=== PATIENT | female | born 1985 | race Caucasian/White ===

== ENCOUNTER 2017-05-07 12:52 | Outpatient (CLI) | payer OTHER ==
[2017-05-07 13:28] VITALS: BP 127/69
--- NOTE | 2017-05-07 14:59 | Ultrasound Report ---
OB LIMITED INDICATION: MONIQUE. COMPARISON: None similar. TECHNIQUE: Transabdominal grayscale ultrasound with Doppler interrogation. Gestation: [place] Position: Cephalic Amniotic Fluid: WNL (7-24 cm) MONIQUE = 7 cm Heart Rate: 138 BPM CONCLUSION: Findings, as above.
--- NOTE | 2017-05-07 15:47 | Ultrasound Report ---
BIOPHYSICAL PROFILE: INDICATION: MONIQUE.. COMPARISON: None similar at this institution. TECHNIQUE: Transabdominal ultrasound with Doppler interrogation. 2 - breathing movements 2 - movements 2 - posture and tone 2 - Qualitative amniotic fluid volume 8 - TOTAL SCORE OF POSSIBLE 8 Heart Rate (bpm) 138 CONCLUSION: Findings, as above.
== END 2017-05-07 15:08 | disposition home or self-care (01) ==
LOC: TRG 12:52
PROVIDERS: ATTEND Obstetrics & Gynecology
DX: O48.0 Post-term pregnancy (principal); Z3A.41 41 weeks gestation of pregnancy
CPT/HCPCS: 59025; 76815; 76819

== ENCOUNTER 2017-05-09 08:59 | Inpatient (IN) | payer MEDICAID, OTHER ==
[2017-05-09] MEDS ORDERED: ePHEDrine SULFATE IV PRN (10:32)
[2017-05-09] MEDS ORDERED: MINERAL OIL PO PRN (10:32)
[2017-05-09] MEDS ORDERED: BRETHINE IVP PRN (10:32)
[2017-05-09] MEDS ORDERED: BRETHINE SUB-Q PRN (10:32)
[2017-05-09] MEDS ORDERED: XYLOCAINE 2% INFILTRATI ONE (10:32)
[2017-05-09] MEDS ORDERED: STADOL IV PRN (10:32)
--- NOTE | 2017-05-09 10:40 | History and Physical Report ---
History of Present Illness Date of examination: 05/09/17 Date of admission: 05/09/17 08:59 Chief complaint: Presents for a scheduled postdates induction of labor History of present illness: Late entry to care at [facility] at 24 weeks, course has been uncomplicated. Past History Past Medical History: no pertinent history Past Surgical History: no surgical history Family/Genetic History: none Social history: no significant social history, single - Obstetrical History Expected Date of Delivery: 04/28/17 Actual Gestation: 41 Week(s) 4 Day(s) : 3 Para: 1 Hx # Term Pregnancies: 1 Spontaneous Abortions: 1 Number of Living Children: 1 #1 Gender: Female year: 2[birth year] Birthweight: 3.175 kg Method of Delivery: Vaginal Gestational age at delivery: 40 Complications: none Medications and Allergies Allergies Allergy/AdvReac Type Severity Reaction Status Date / Time No Known Allergies Allergy Unverified 05/07/17 13:22 Home Medications Medication Instructions Recorded Confirmed Last Taken Type Vit Calc,Iron,Folic 1 each PO DAILY 05/07/17 05/07/17 05/07/17 09:00 History [ Vitamins] 1 Review of Systems All systems: negative - Vital Signs Vital signs: Vital Signs Pulse Pulse Ox 67 97 05/09/17 09:34 05/09/17 09:34 Temp Pulse Resp BP Pulse Ox 98.4 F 76 22 129/73 95 05/09/17 09:37 05/09/17 10:39 05/09/17 09:37 05/09/17 09:40 05/09/17 10:39 - Physical Exam Breasts: Positive: normal Cardiovascular: Regular rate Lungs: Positive: Clear to auscultation, Normal air movement Abdomen: Positive: normal appearance, soft, normal bowel sounds Genitourinary (Female): Positive: normal external genitalia, normal perenium Vagina: Positive: normal moisture Uterus: Positive: enlarged Anus/Rectum: Positive: normal perianal skin - Obstetrical FHR: category 1 Uterine Contraction Monitor Mode: Internal Cervical Dilatation: 4 (Small amount of clear fluid upon AROM at 1023) Cervical Effacement Percentage: 60 station: -2 Uterine Contraction Pattern: Irregular Uterine Tone Measurement Phase: Resting Uterine Contraction Intensity: Mild Results All other labs normal. Assessment and Plan A: IUP @ 41 4/7 Weeks Category I Tracing Maternal Obesity GBS Negative P: Admit to L&D per routine orders AROM IUPC Pitocin Induction
[2017-05-09] MEDS ORDERED: LACTATED RINGERS 1,000 ML IV SCH (11:00)
[2017-05-09] MEDS ORDERED: PITOCin/NS 20 UNIT/1000ML DRIP 20 UNITS/1,000 ML BAG IV SCH ×2 (11:00→20:00)
[2017-05-09] MEDS: PITOCin/NS 30 UNIT/500ML 30 UNITS/500 ML BAG IV SCH ×2 (11:41→12:46)
[2017-05-09 11:42] LABS: Hematocrit 39.3 % (30.3-42.9); Hemoglobin 12.7 gm/dl (10.1-14.3); Mean Corpuscular HGB Conc 32 % (30-34); Mean Corpuscular Hemoglobin 27 pg (28-32); Mean Corpuscular Volume 84 fl (79-97); Platelet Count 216 K/mm3 (140-440); Red Blood Count 4.69 M/mm3 (3.65-5.03); Red Cell Distribution Width 15.3 % (13.2-15.2)
[2017-05-09] MEDS ORDERED: BICITRA ONE (17:48)
[2017-05-09] MEDS ORDERED: REGLAN ONE (17:48)
[2017-05-09] MEDS ORDERED: PEPCID IV ONE (17:48)
[2017-05-09] MEDS ORDERED: ANCEF/STERILE WATER 2 GM/20 ML 2 GM/20 ML SYRINGE IV ONE ×2 (17:48→17:57)
[2017-05-09] MEDS ORDERED: MORPHINE ONE ×2 (18:03→18:07)
[2017-05-09] MEDS ORDERED: ANCEF/STERILE WATER 2 GM/20 ML IV ONE (18:15)
[2017-05-09] MEDS ORDERED: NEO SYNEPHRINE/NS Syringe(OR USE) IV ONE (18:31)
[2017-05-09] MEDS ORDERED: ZOFRAN ONE (18:49)
[2017-05-09] MEDS ORDERED: VERSED ONE (18:50)
--- NOTE | 2017-05-09 19:03 | Operative Report ---
Operative Report Operative Report: DATE: 05/09/2017 PREOPERATIVE DIAGNOSIS: A 31-year-old G3 to P1 at 41+4 weeks, category 2 tracing with deep recurrent variable decelerations, arrest of descent, suspected macrosomia, Maternal morbid obesity POSTOP DIAGNOSIS: As above NAME OF PROCEDURE: Primary low transverse section SURGEON: RAQUEL DIAZ MD SCRAP STRIPPER HAND: [] ANESTHESIA: Spinal EBL: 700 mL PATHOLOGY SPECIMEN: None URINE OUTPUT: 100 mL FINDINGS: Female in cephalic presentation, nuchal cord around neck and body 1, time of 18:20, weight 7 lbs. 5 oz. or 3295 g, Apgars 8 and 9, thick meconium-stained amniotic fluid, normal uterus tubes and ovaries bilaterally DESCRIPTION OF PROCEDURE: After informed consent, patient was taken to the operating room where she was prepped and draped in a sterile fashion. Pfannestial incision was performed 2 cm above the pubic symphysis. This was then carried down to the underlying rectus fascia which was scored in the midline. The fascial incision was extended laterally with the use of Stephens scissors, anterior leaf was then grasped with Linden's elevated dissected sharply and bluntly off the underlying rectus. In a similar fashion the inferior leaf was grasped elevated dissected sharply and bluntly off the underlying rectus. The rectus was in the midline and the peritoneal cavity was entered without difficulty. After good visualization of the bladder the peritoneal layer was extended up and down; bladder blade was placed in the patient's pelvic cavity, bladder flap was created without difficulty. A hysterotomy incision was then performed with thick meconium stained amniotic fluid noted. Infant in cephalic presentation was delivered without difficulty in the usual manner; cord was clamped cut and was handed over to waiting NICU staff. The placenta was then delivered intact, the uterus was then exteriorized cleared of all clots and debris. Her hysterotomy incision was then closed in a running locked fashion with 0 Vicryl on a CTX; using the same suture were able to imbricate the initial layer. The uterus was then returned to the patient's pelvic cavity; the peritoneal edges were grasped with hemostats and Fabiana's; irrigation was used to clear the gutters of all clots and debris. Tisseel hemostatic agent was applied copiously over the hysterotomy incision. The peritoneal layer was closed in a running fashion with 3-0 Vicryl; the rectus was reapproximated with a single [id number] stitch. The fascia was then closed in a running fashion with 0 Vicryl; the subcutaneous layer was reapproximated with a single [id number] stitch. The skin was then closed in a subcuticular manner with 4-0 Monocryl. She tolerated the procedure well lap and instrument counts were correct 2, she did receive 2 grams of Ancef prior to the procedure. She is transferred to PACU in stable condition.
[2017-05-09] MEDS ORDERED: TYLENOL PO PRN (19:05)
[2017-05-09] MEDS ORDERED: TUCKS PAD TP PRN (19:05)
[2017-05-09] MEDS ORDERED: REGLAN IV PRN (19:05)
[2017-05-09] MEDS ORDERED: MYLICON PO PRN (19:05)
[2017-05-09] MEDS ORDERED: BENADRYL IV PRN (19:05)
[2017-05-09] MEDS ORDERED: ZOFRAN IV PRN ×2 (19:05)
[2017-05-09] MEDS ORDERED: MILK OF MAGNESIA PO PRN (19:05)
[2017-05-09] MEDS ORDERED: TORADOL IV PRN (19:05)
[2017-05-09] MEDS ORDERED: LANSINOH TP PRN (19:05)
[2017-05-09] MEDS ORDERED: NARCAN 0.4 MG/1 ML IV PRN ×2 (19:05)
[2017-05-09] MEDS ORDERED: SENOKOT PO PRN (19:05)
[2017-05-09] MEDS ORDERED: PHENERGAN PR PRN (19:05)
[2017-05-09] MEDS ORDERED: ANUCORT-HC PR PRN (19:05)
--- NOTE | 2017-05-09 19:45 | Anesthesia Consultation ---
Anesthesia Consult and Med Hx Date of service: 05/09/17 - Airway Anesthetic Teeth Evaluation: Good ROM Head & Neck: Adequate Mental/Hyoid Distance: Adequate Mallampati Class: Class II Intubation Access Assessment: Probably Good - Pulmonary Exam CTA: Yes - Cardiac Exam Cardiac Exam: RRR - Pre-Operative Health Status ASA Pre-Surgery Classification: ASA3, Emergency Proposed Anesthetic Plan: Spinal - Pulmonary Hx Asthma: No COPD: No Hx Pneumonia: No - Cardiovascular System Hx Hypertension: No - Central Nervous System Hx Seizures: No Hx Psychiatric Problems: No - Endocrine Hx Renal Disease: No Hx End Stage Renal Disease: No Hx Hypothyroidism: No Hx Hyperthyroidism: No - Hematic Hx Anemia: No Hx Sickle Cell Disease: No - Other Systems Hx Alcohol Use: No Hx Obesity: Yes (morbid)
--- NOTE | 2017-05-09 19:46 | Post Anesthesia Evaluation ---
- Post Anesthesia Evaluation Patient Participated: Yes Airway Patent: Yes Stable Respiratory Function: Yes Temp > 96.8F: Yes Pain Manageable: Yes Adequeate Hydration: Yes Anesthesia Complications: No
--- NOTE | 2017-05-09 19:46 | Anesthesia Day of Surgery ---
Anesthesia Day of Surgery - Day of Surgery Patient Examined: Yes Patient H&P Reviewed: Yes Patient is NPO: No
[2017-05-09] MEDS ORDERED: MORPHINE PCA 30MG/30ML IV SCH (20:00)
[2017-05-09] MEDS ORDERED: SODIUM CHLORIDE FLUSH SYRINGE 10 ML IV NR (20:00)
[2017-05-09] MEDS ORDERED: NACL 0.9% 1000 ML 1,000 ML IV SCH (20:00)
[2017-05-09] MEDS: SENOKOT S PO SCH (22:12)
[2017-05-09] MEDS: D5LR 1,000 ML IV SCH (22:16)
[2017-05-10] MEDS: D5LR 1,000 ML IV SCH (06:33)
[2017-05-10 08:41] LABS: Hematocrit 32.1 % (30.3-42.9); Hemoglobin 10.8 gm/dl (10.1-14.3)
[2017-05-10] MEDS: PERCOCET 5/325 PO PRN ×2 (10:07→18:40)
--- NOTE | 2017-05-10 10:22 | Progress Note ---
Assessment and Plan A: POD 1 - stable P: Continue routine postop orders Consulted Dr. Diaz about POC. Recommended discontinuing SLIVER CUTTER pump and starting PO pain meds Change positions slowly and ambulate with assistance Subjective - Subjective Date of service: 05/10/17 Principal diagnosis: Primary Low Transverse Patient reports: appetite normal, dizzy ambulation, no voiding normally, no flatus [place]: doing well, nursing well, bottle feeding Objective - Vital Signs Latest vital signs: Vital Signs Temp Pulse Resp BP BP Pulse Ox 05/10/17 10:07 20 05/10/17 08:01 99.5 F 81 126/55 20 L 05/10/17 07:55 20 05/10/17 06:30 18 05/10/17 05:30 18 05/10/17 04:30 98.7 F 86 18 119/66 95 05/10/17 03:30 18 05/10/17 01:00 18 05/10/17 00:40 98.0 F 97 H 20 133/77 97 05/10/17 00:15 18 05/09/17 22:10 18 05/09/17 21:30 98.4 F 85 18 150/82 97 05/09/17 21:20 18 05/09/17 20:20 81 20 138/62 96 05/09/17 20:05 83 19 128/63 96 05/09/17 19:50 77 16 105/34 96 05/09/17 19:35 85 17 98/45 97 05/09/17 19:20 91 H 18 113/75 97 05/09/17 19:15 93 H 12 117/55 97 05/09/17 19:09 97.9 F 93 H 18 115/29 97 05/09/17 17:37 85 144/77 05/09/17 17:07 85 141/103 94 05/09/17 17:06 85 96 05/09/17 17:01 89 95 05/09/17 16:55 89 97 05/09/17 16:50 94 H 94 05/09/17 16:49 77 94 05/09/17 16:45 84 97 05/09/17 16:40 84 96 05/09/17 16:37 84 144/72 05/09/17 16:34 80 20 95 05/09/17 16:29 88 96 05/09/17 16:24 77 97 17 16:19 84 98 17 16:17 66 93 05/09/17 16:14 84 97 17 16:09 86 97 17 16:07 78 145/70 94 17 16:04 83 97 17 15:59 72 92 17 15:54 70 96 17 15:49 83 96 17 15:44 70 97 17 15:39 75 94 17 15:37 66 147/72 93 17 15:34 70 97 17 15:29 74 96 05/09/17 15:24 72 97 17 15:19 78 97 05/09/17 15:14 70 97 17 15:09 80 97 05/09/17 15:07 71 136/69 17 15:04 73 97 05/09/17 14:59 69 97 05/09/17 14:54 77 96 05/09/17 14:49 74 96 05/09/17 14:44 76 97 05/09/17 14:39 76 97 05/09/17 14:37 78 138/76 05/09/17 14:36 68 94 05/09/17 14:34 79 96 05/09/17 14:29 76 95 05/09/17 14:24 79 96 05/09/17 14:19 80 96 05/09/17 14:14 75 97 05/09/17 14:09 79 96 05/09/17 14:07 82 122/77 05/09/17 14:04 68 95 05/09/17 14:03 69 94 05/09/17 13:59 79 95 17 13:54 73 97 17 13:49 87 96 17 13:48 75 93 17 13:44 76 95 17 13:39 72 97 17 13:37 75 122/60 92 17 13:34 71 96 17 13:29 82 95 17 13:24 77 95 17 13:19 69 96 17 13:14 75 97 05/09/17 13:09 76 97 05/09/17 13:06 81 125/71 05/09/17 13:04 79 97 05/09/17 12:59 74 97 05/09/17 12:54 70 97 05/09/17 12:51 78 124/72 93 05/09/17 12:49 72 96 05/09/17 12:44 76 96 05/09/17 12:39 77 96 05/09/17 12:34 67 96 05/09/17 12:33 67 22 139/87 138/87 96 05/09/17 12:29 73 97 05/09/17 12:24 73 95 05/09/17 12:19 69 97 05/09/17 12:14 68 97 05/09/17 12:09 85 96 05/09/17 12:04 79 96 05/09/17 11:59 72 97 05/09/17 11:54 74 96 05/09/17 11:49 74 96 05/09/17 11:45 71 117/62 94 05/09/17 11:44 71 22 117/62 97 05/09/17 11:39 74 97 05/09/17 11:34 77 97 05/09/17 11:29 66 97 05/09/17 11:24 72 96 05/09/17 11:19 73 96 05/09/17 11:14 69 96 05/09/17 11:09 72 97 05/09/17 11:04 68 96 05/09/17 10:59 71 97 05/09/17 10:54 73 97 05/09/17 10:49 67 96 05/09/17 10:44 75 96 05/09/17 10:39 76 95 05/09/17 10:34 77 96 05/09/17 10:29 75 96 05/09/17 10:24 79 96 Intake and Output 05/09/17 05/10/17 05/10/17 23:59 07:59 15:59 Intake Total 2500 1420 120 Output Total 500 1100 300 Balance 2000 320 -180 Intake: IV 2400 1000 D5lr 1,000 ml @ 125 mls/ 1000 hr IV DIRECT AGNIESZKA Rx#: [id number] Oral 100 420 120 Output: Urine 500 1100 300 Indwelling Catheter 400 Uretheral ([place]) 300 700 Void 300 Other: Total, Intake Amount 100 300 120 Total, Output Amount 400 300 Estimated Blood Loss 700 - Exam Cardiovascular: Present: Regular rate, Normal S1, Normal S2, No murmurs Lungs: Present: Clear to auscultation, Normal air movement Abdomen: Present: normal appearance Vulva: both: normal Uterus: Present: normal, firm, fundal height above umbilicus Extremities: Present: normal Deep Tendon Reflex Grade: Normal +2 Incision: Present: normal, dry, dressed - Labs Labs: Abnormal lab results 05/09/17 Range/Units 10:55 MCH 27 L (28-32) pg RDW 15.3 H (13.2-15.2) %
[2017-05-10] MEDS ORDERED: BOOSTRIX IM ONE (19:07)
[2017-05-10] MEDS ORDERED: M-M-R II VACCINE SUB-Q ONE (19:07)
[2017-05-10] MEDS: SENOKOT S PO SCH (21:59)
[2017-05-11] MEDS: PERCOCET 5/325 PO PRN ×2 (01:52→17:10)
[2017-05-11] MEDS ORDERED: BOOSTRIX IM ONE (06:00)
--- NOTE | 2017-05-11 09:57 | Progress Note ---
Assessment and Plan A: POD # 2 - stable P: Discharge home in am Subjective - Subjective Date of service: 05/11/17 Principal diagnosis: Primary Low Transverse Patient reports: appetite normal : doing well Objective - Vital Signs Latest vital signs: Vital Signs Temp Pulse Resp BP BP Pulse Ox 05/11/17 08:25 98.6 F 81 18 121/58 05/11/17 01:40 98.6 F 87 18 130/64 97 05/10/17 18:40 20 05/10/17 16:32 98.8 F 78 18 107/50 107/50 97 05/10/17 12:00 98.1 F 79 20 125/54 125/54 95 05/10/17 10:07 20 05/10/17 10:00 20 Intake and Output 05/10/17 05/11/17 05/11/17 22:59 06:59 14:59 Intake Total 240 360 120 Balance 240 360 120 Intake: Oral 240 120 Intake, Free Water 360 Other: Total, Intake Amount 240 120 # Voids Void 1 1 1 - Exam Breasts: Present: deferred, mass Lungs: Present: Clear to auscultation Abdomen: Present: soft Vulva: both: normal Uterus: Present: fundal height below umbilicus Extremities: Present: normal Deep Tendon Reflex Grade: Normal +2 Incision: Present: intact, dressed
--- NOTE | 2017-05-11 09:58 | Discharge Summary ---
Providers - Providers Date of Admission: 05/09/17 08:59 Date of discharge: 05/12/17 Attending physician: HARINDER NEIL MD Primary care physician: HARINDER NEIL MD Hospitalization Reason for admission: active labor Delivery: Procedure: section Episiotomy: none Laceration: none Incision: intact complications: none Discharge diagnosis: IUP at term delivered [place] baby: female Condition at discharge: Good Disposition: DC-01 TO HOME OR SELFCARE Plan - Discharge Medications Prescriptions: Ibuprofen [Motrin 600 MG tab] 600 mg PO Q8H PRN #30 tablet PRN Reason: Pain Multivitamin with Iron [Multivitamins with Iron] 1 each PO DAILY #30 tablet oxyCODONE /ACETAMINOPHEN [Percocet 5/325] 1 tab PO Q6HR PRN #30 tablet PRN Reason: Pain - Provider Discharge Summary Activity: routine, no sex for 6 weeks, no strenuous exercise Diet: routine Instructions: routine Additional instructions: [] Smoking cessation referral if applicable(refer to patient education folder for contact #) [] Refer to [facility] Booklet Call your doctor immediately for: * Fever > 100.5 * Heavy vaginal bleeding ( >1 pad per hour) * Severe persistent headache * Shortness of breath * Reddened, hot, painful area to leg or breast * Drainage or odor from incision. * Keep incision clean and dry at all times and follow doctor's instructions regarding bathing/showering - Follow up plan Follow up: HARINDER NEIL MD [Primary Care Provider] - 14 Days
[2017-05-11] MEDS: PRENATAL VITAMIN PO SCH (17:10)
[2017-05-11] MEDS: MOTRIN PO PRN (17:10)
[2017-05-11] MEDS: SENOKOT S PO SCH ×2 (17:10→22:29)
[2017-05-11] MEDS: FEOSOL PO SCH (17:10)
[2017-05-12] MEDS: PERCOCET 5/325 PO PRN (04:55)
[2017-05-12] MEDS: MOTRIN PO PRN (04:56)
[2017-05-12] MEDS: PRENATAL VITAMIN PO SCH (10:14)
[2017-05-12] MEDS: FEOSOL PO SCH (10:14)
[2017-05-12] MEDS: SENOKOT S PO SCH (10:14)
[2017-05-12] MEDS ORDERED: Fluarix Quad 2017-2018(36 MOS+ IM ONE (13:00)
[2017-05-12 16:06] VITALS: BP 131/57
== END 2017-05-12 15:15 | disposition home or self-care (01) | DRG 765 ==
LOC: LD 08:59 → APU 18:40 → OB 21:03
PROVIDERS: ADMIT Obstetrics & Gynecology; ATTEND Obstetrics & Gynecology
PROC: 10D00Z1 Extraction of Products of Conception, Low, Open Approach (ICD-10-PCS; principal; 2017-05-09)
DX: O48.0 Post-term pregnancy (principal); Z68.41 Body mass index [BMI] 40.0-44.9, adult; O99.214 Obesity complicating childbirth; O76 Abnormality in fetal heart rate and rhythm complicating labor and delivery; O69.81X0 Labor and delivery complicated by cord around neck, without compression, not applicable or unspecified; O77.0 Labor and delivery complicated by meconium in amniotic fluid; O75.0 Maternal distress during labor and delivery; E66.01 Morbid (severe) obesity due to excess calories; Z3A.41 41 weeks gestation of pregnancy; Z37.0 Single live birth; Z71.3 Dietary counseling and surveillance
CPT/HCPCS: 36415; 85014; 85018; 85027; 86592; 86850; 86900; 86901; 90471; 90686; 90715; 99211; C9250; G0463; J0595; J0690; J2250; J2270; J2370; J2405; J2590; J2765; J7120; J7121

== ENCOUNTER 2019-09-26 22:02 | Inpatient (IN) | payer OTHER, SELFPAY ==
[2019-09-26 22:42] LABS: HCG Qualitative,Urine Negative (Negative)
--- NOTE | 2019-09-26 22:57 | Emergency Department Report ---
Minor Respiratory - HPI Chief Complaint: Upper Respiratory Infection Stated Complaint: HEADACE/FEVER/SORE THROAT ED Review of Systems ROS: Stated complaint: HEADACE/FEVER/SORE THROAT Other details as noted in HPI ED Past Medical Hx - Past Medical History Previous Medical History?: No Hx Hypertension: No Hx Congestive Heart Failure: No Hx Diabetes: No Hx Deep Vein Thrombosis: No Hx Renal Disease: No Hx Sickle Cell Disease: No Hx Seizures: No Hx Asthma: No Hx COPD: No Hx HIV: No - Surgical History Past Surgical History?: No - Social History Smoking Status: Never Smoker Substance Use Type: None - Medications Home Medications: Home Medications Medication Instructions Recorded Confirmed Last Taken Type Vit Calc,Iron,Folic 1 each PO DAILY 05/07/17 05/09/17 05/09/17 09:00 History [ Vitamins] Ibuprofen [Motrin 600 MG tab] 600 mg PO Q8H PRN #30 tablet 05/09/17 Unknown Rx Multivitamin with Iron 1 each PO DAILY #30 tablet 05/09/17 Unknown Rx [Multivitamins with Iron] oxyCODONE /ACETAMINOPHEN [Percocet 1 tab PO Q6HR PRN #30 tablet 05/09/17 Unknown Rx 5/325] Minor Respiratory Exam - Exam General: Vital signs noted. No distress. Alert and acting appropriately. Neurologic: Alert and oriented, no deficits. Musculoskeletal: Unremarkable. ED Course Vital Signs 09/26/19 22:08 Temperature 99.9 F H Pulse Rate 102 H Respiratory 18 Rate Blood Pressure 156/75 O2 Sat by Pulse 94 Oximetry Critical care attestation.: If time is entered above; I have spent that time in minutes in the direct care of this critically ill patient, excluding procedure time. ED Disposition Condition: Stable
[2019-09-26] MEDS ORDERED: IBUPROFEN 600 MG TAB PO ONE (23:10)
[2019-09-26 23:17] LABS: Bilirubin,Urine NEG (Negative); Blood,Urine NEG (Negative); Color,Urine Yellow (Yellow); Mucus,Urine FEW /HPF
--- NOTE | 2019-09-26 23:25 | XRay Report ---
CHEST 2 VIEWS INDICATION / CLINICAL INFORMATION: mid back pain. COMPARISON: None available. FINDINGS: SUPPORT DEVICES: None. HEART / MEDIASTINUM: No significant abnormality. LUNGS / PLEURA: There are patchy airspace opacities in the right mid lower lung zone and the left [place] .No pneumothorax. ADDITIONAL FINDINGS: No significant additional findings. IMPRESSION: 1. There are patchy airspace opacities bilaterally. This could represent atelectasis or pneumonitis. Signer Name: Jaylan Duvall MD Signed: 09/26/2019 11:21 PM Workstation Name: [id number]
--- NOTE | 2019-09-26 23:48 | Emergency Department Report ---
ED General Adult HPI - General Chief complaint: Upper Respiratory Infection Stated complaint: HEADACE/FEVER/SORE THROAT Source: patient Mode of arrival: Ambulatory Limitations: Language Barrier - History of Present Illness Initial comments: 34-year-old female presents to the emergency room complaining of mid to lower back pain x2 days. Patient states that she does have some burning with urination and concern for . Patient stated that she had a fever sore t hroat and headache yesterday but resolved today. Patient does admit to having seasonal allergies. Patient denies any back injury. Patient reports she does not take any medications on a daily basis she took ibuprofen yesterday but no pain medicine today. Patient denies any known drug allergies. Onset/Timin -: days(s) Location: back Radiation: non-radiation Quality: aching Consistency: intermittent Improves with: none Worsens with: none Associated Symptoms: other (Dysuria) Treatments Prior to Arrival: none - Related Data Home Medications Medication Instructions Recorded Confirmed Last Taken Vit Calc,Iron,Folic 1 each PO DAILY 05/07/17 05/09/17 05/09/17 09:00 [ Vitamins] Previous Rx's Medication Instructions Recorded Last Taken Type Ibuprofen [Motrin 600 MG tab] 600 mg PO Q8H PRN #30 tablet 05/09/17 Unknown Rx Multivitamin with Iron 1 each PO DAILY #30 tablet 05/09/17 Unknown Rx [Multivitamins with Iron] oxyCODONE /ACETAMINOPHEN [Percocet 1 tab PO Q6HR PRN #30 tablet 05/09/17 Unknown Rx 5/325] Allergies Allergy/AdvReac Type Severity Reaction Status Date / Time No Known Allergies Allergy Verified 05/09/17 10:36 ED Review of Systems ROS: Stated complaint: HEADACE/FEVER/SORE THROAT Other details as noted in HPI Comment: All other systems reviewed and negative ED Past Medical Hx - Past Medical History Hx Hypertension: No Hx Congestive Heart Failure: No Hx Diabetes: No Hx Deep Vein Thrombosis: No Hx Renal Disease: No Hx Sickle Cell Disease: No Hx Seizures: No Hx Asthma: No Hx COPD: No Hx HIV: No - Surgical History Past Surgical History?: No - Social History Smoking Status: Never Smoker Substance Use Type: None - Medications Home Medications: Home Medications Medication Instructions Recorded Confirmed Last Taken Type Vit Calc,Iron,Folic 1 each PO DAILY 05/07/17 05/09/1705/09/17 09:00 History [ Vitamins] Ibuprofen [Motrin 600 MG tab] 600 mg PO Q8H PRN #30 tablet 05/09/17 Unknown Rx Multivitamin with Iron 1 each PO DAILY #30 tablet 05/09/17 Unknown Rx [Multivitamins with Iron] oxyCODONE /ACETAMINOPHEN [Percocet 1 tab PO Q6HR PRN #30 tablet 05/09/17 Unknown Rx 5/325] ED Physical Exam - General Limitations: Language Barrier General appearance: alert, in no apparent distress - Head Head exam: Present: atraumatic, normocephalic - Eye Eye exam: Present: normal appearance - ENT ENT exam: Present: mucous membranes moist - Neck Neck exam: Present: normal inspection, full ROM - Respiratory Respiratory exam: Present: normal lung sounds bilaterally. Absent: respiratory distress - Cardiovascular Cardiovascular Exam: Present: regular rate, normal rhythm. Absent: systolic murmur, diastolic murmur, rubs, gallop - GI/Abdominal GI/Abdominal exam: Present: soft. Absent: distended, tenderness, guarding - Extremities Exam Extremities exam: Present: normal inspection, full ROM - Back Exam Back exam: Present: full ROM, tenderness. Absent: paraspinal tenderness, verteb ral tenderness - Neurological Exam Neurological exam: Present: alert, oriented X3, normal gait - Psychiatric Psychiatric exam: Present: normal affect, normal mood - Skin Skin exam: Present: warm, dry, intact, normal color. Absent: rash ED Course Vital Signs 09/26/19 09/26/19 09/26/19 22:08 23:40 23:41 Temperature 99.9 F H 99.8 F H Pulse Rate 102 H 95 H Respiratory 18 Rate Blood Pressure 156/75 150/65 O2 Sat by Pulse 94 94 Oximetry 09/27/19 09/27/19 09/27/19 01:58 02:01 02:15 Temperature 100.8 F H Pulse Rate 100 H 94 H Respiratory 24 21 Rate Blood Pressure 147/81 O2 Sat by Pulse 95 96 95 Oximetry 09/27/19 09/27/19 02:31 02:32 Temperature Pulse Rate Respiratory 24 Rate Blood Pressure 147/81 O2 Sat by Pulse 96 95 Oximetry ED Medical Decision Making - Lab Data Result diagrams: 09/27/19 00:22 09/27/19 00:22 Laboratory Tests 09/26/19 09/26/19 09/27/19 22:30 22:30 00:22 WBC 6.1 RBC 4.83 Hgb 13.7 Hct 40.1 MCV 83 MCH 28 MCHC 34 RDW 13.5 Plt Count 243 Lymph % (Auto) 28.3 [place] % (Auto) 10.1 H Eos % (Auto) 0.5 Baso % (Auto) 0.5 Lymph # 1.7 [place] # 0.6 Eos # 0.0 Baso # 0.0 Seg Neutrophils % 60.6 Seg Neutrophils # 3.7 D-Dimer Sodium Potassium Chloride Carbon Dioxide Anion Gap BUN Creatinine Estimated GFR BUN/Creatinine Ratio Glucose Calcium Ferritin Total Bilirubin AST ALT Alkaline Phosphatase Lactate Dehydrogenase C-Reactive Protein Total Protein Albumin Albumin/Globulin Ratio Urine Color Yellow Urine Turbidity Clear Urine pH 6.0 Ur Specific [place] 1.020 Urine Protein 30 mg/dl Urine Glucose (UA) Neg Urine Ketones Neg Urine Blood Neg Urine Nitrite Neg Urine Bilirubin Neg Urine Urobilinogen 2.0 Ur Leukocyte Esterase Neg Urine WBC (Auto) 2.0 Urine RBC (Auto) 2.0 U Epithel Cells (Auto) 7.0 Urine Mucus Few Urine HCG, Qual Negative 09/27/19 09/27/19 09/27/19 00:22 00:22 00:22 WBC RBC Hgb Hct MCV MCH MCHC RDW Plt Count Lymph % (Auto) [place] % (Auto) Eos % (Auto) Baso % (Auto) Lymph # [place] # Eos # Baso # Seg Neutrophils % Seg Neutrophils # D-Dimer 280.32 H Sodium 138 Potassium 3.7 Chloride 98.6 Carbon Dioxide 24 Anion Gap 19 BUN 10 Creatinine 0.5 L Estimated GFR > 60 BUN/Creatinine Ratio 20 Glucose 131 H 133 H Calcium 9.4 Ferritin Total Bilirubin 0.40 AST 40 ALT 68 H Alkaline Phosphatase 84 Lactate Dehydrogenase 250 H C-Reactive Protein 5.10 H Total Protein 8.6 H Albumin 4.4 Albumin/Globulin Ratio 1.0 Urine Color Urine Turbidity Urine pH Ur Specific [place] Urine Protein Urine Glucose (UA) Urine Ketones Urine Blood Urine Nitrite Urine Bilirubin Urine Urobilinogen Ur Leukocyte Esterase Urine WBC (Auto) Urine RBC (Auto) U Epithel Cells (Auto) Urine Mucus Urine HCG, Qual 09/27/19 00:22 WBC RBC Hgb Hct MCV MCH MCHC RDW Plt Count Lymph % (Auto) [place] % (Auto) Eos % (Auto) Baso % (Auto) Lymph # [place] # Eos # Baso # Seg Neutrophils % Seg Neutrophils # D-Dimer Sodium Potassium Chloride Carbon Dioxide Anion Gap BUN Creatinine Estimated GFR BUN/Creatinine Ratio Glucose Calcium Ferritin 418.6 H Total Bilirubin AST ALT Alkaline Phosphatase Lactate Dehydrogenase C-Reactive Protein Total Protein Albumin Albumin/Globulin Ratio Urine Color Urine Turbidity Urine pH Ur Specific [place] Urine Protein Urine Glucose (UA) Urine Ketones Urine Blood Urine Nitrite Urine Bilirubin Urine Urobilinogen Ur Leukocyte Esterase Urine WBC (Auto) Urine RBC (Auto) U Epithel Cells (Auto) Urine Mucus Urine HCG, Qual - Medical Decision Making 34-year-old female presents to the emergency room complaining of mid to lower back pain x2 days. Patient states that she does have some burning with urination and concern for . Patient stated that she had a fever sore throat and headache yesterday but resolved today. Patient does admit to having seasonal allergies. Patient denies any back injury. Patient reports she does not take any medications on a daily basis she took ibuprofen yesterday but no pain medicine today. Patient denies any known drug allergies. Negative test ordered urinalysis chest x-ray was ordered in triage. Provider noticed that patient pulse ox is 94 on room air in triage. Chest x-ray was completed shows bilateral airspace opacities concern for atelectasis versus pneumonitis. Spoke to Dr. Ab Farfan emergency room attending regarding results. Also walked patient up and down hallway pulse ox dropped to 88% on room air heart rate up to 102. Nurse repeated temperature was 99.8. Critical care attestation.: If time is entered above; I have spent that time in minutes in the direct care of this critically ill patient, excluding procedure time. ED Disposition Clinical Impression: Pneumonia, Suspected 2019 novel coronavirus infection Disposition: OP ADMIT IP TO THIS HOSP Is pt being admited?: Yes Does the pt Need Aspirin: No Condition: Stable
[2019-09-27 00:38] LABS: Basophils % (Auto) 0.5 % (0.0-1.8); Eosinophils % (Auto) 0.5 % (0.0-4.3); Hemoglobin 13.7 gm/dl (10.1-14.3); Lymphocytes # (Auto) 1.7 K/mm3 (1.2-5.4); Lymphocytes % (Auto) 28.3 % (13.4-35.0); Monocytes # (Auto) 0.6 K/mm3 (0.0-0.8); Monocytes % (Auto) 10.1 % (0.0-7.3)
[2019-09-27 00:48] LABS: Hematocrit 40.1 % (30.3-42.9); Mean Corpuscular HGB Conc 34 % (30-34); Mean Corpuscular Volume 83 fl (79-97); Platelet Count 243 K/mm3 (140-440); Red Blood Count 4.83 M/mm3 (3.65-5.03); Red Cell Distribution Width 13.5 % (13.2-15.2)
[2019-09-27 01:03] LABS: Alanine Aminotransferase 68 units/L (7-56); Albumin 4.4 g/dL (3.9-5); BUN/Creatinine Ratio 20; Blood Urea Nitrogen 10 mg/dL (7-17); Calcium 9.4 mg/dL (8.4-10.2); Hemolysis Index 5
[2019-09-27] MEDS ORDERED: AZITHROMYCIN 500 MG in SODIUM CHLORIDE 0.9% 250ML 250 ML IV ONE (01:39)
[2019-09-27] MEDS ORDERED: SODIUM CHLORIDE 0.9% 1000 ML 1,000 ML IV ONE (01:45)
[2019-09-27] MEDS ORDERED: cefTRIAXone/NS 1 GM/50 ML 0 GM/0 ML BAG IV ONE (01:48)
[2019-09-27] MEDS ORDERED: ACETAMINOPHEN 500 MG TAB ONE (02:22)
[2019-09-27] MEDS ORDERED: ACETAMINOPHEN 500 MG TAB PO ONE (02:22)
[2019-09-27] MEDS ORDERED: ONDANSETRON 4 MG/2 ML INJ IV PRN (02:29)
[2019-09-27] MEDS ORDERED: ACETAMINOPHEN 325 MG TAB PO PRN (02:29)
[2019-09-27] MEDS ORDERED: MAGNESIUM HYDROXIDE (MOM) ORAL LIQD UDC PO PRN (02:29)
--- NOTE | 2019-09-27 03:26 | History and Physical Report ---
History of Present Illness Date of examination: 09/27/19 Date of admission: 09/27/19 03:06 Chief complaint: Fever Sore throat Back pain History of present illness: 4-year-old female presenting to the emergency room today complaining of mid to lower back pain for 2 days. She also indicates that she has had some fever, sore throat and headache. Headache has since resolved. Patient indicates that she has seasonal allergies he has had some dysuria but denies any hematuria. Denies any nausea vomiting denies any diarrhea. Patient denies any sick contacts and no recent travel. She has no significant past medical problems. Her work-up in the emergency room including chest x-ray were concerning for bilateral pneumonia. She is therefore placed on airborne/droplet precautions for COVID-19. Past History Past Medical History: No medical history Past Surgical History: No surgical history Social history: no significant social history Family history: no significant family history Medications and Allergies Allergies Allergy/AdvReac Type Severity Reaction Status Date / Time No Known Allergies Allergy Verified 05/09/17 10:36 Home Medications Medication Instructions Recorded Confirmed Last Taken Type Vit Calc,Iron,Folic 1 each PO DAILY 05/07/17 05/09/17 05/09/17 09:00 History [ Vitamins] Ibuprofen [Motrin 600 MG tab] 600 mg PO Q8H PRN #30 tablet 05/09/17 Unknown Rx Multivitamin with Iron 1 each PO DAILY #30 tablet 05/09/17 Unknown Rx [Multivitamins with Iron] oxyCODONE /ACETAMINOPHEN [Percocet 1 tab PO Q6HR PRN #30 tablet 05/09/17 Unknown Rx 5/325] Active Meds: Active Medications Acetaminophen (Tylenol) 650 mg PO Q4H PRN PRN Reason: Pain MILD(1-3)/Fever >100.5/HERNANDEZ Sodium Chloride (Nacl 0.9% 1000 Ml) 1,000 mls @ 125 mls/hr IV DIRECT AGNIESZKA Ceftriaxone Sodium (Rocephin/Ns 2 Gm/100 Ml) 2 gm in 100 mls @ 200 mls/hr IV Q24HR AGNIESZKA; Protocol Azithromycin 500 mg/ Sodium (Chloride) 250 mls @ 250 mls/hr IV Q24HR AGNIESZKA; Protocol Magnesium Hydroxide (Milk Of Magnesia) 30 ml PO Q4H PRN PRN Reason: Constipation Ondansetron HCl (Zofran) 4 mg IV Q8H PRN PRN Reason: Nausea And Vomiting Sodium Chloride (Sodium Chloride Flush Syringe 10 Ml) 10 ml IV BID AGNIESZKA Sodium Chloride (Sodium Chloride Flush Syringe 10 Ml) 10 ml IV PRN PRN PRN Reason: LINE FLUSH Review of Systems Constitutional: fever, no chills Ears, nose, mouth and throat: sore throat, no headache, no vertigo Respiratory: cough, congestion Gastrointestinal: no abdominal pain, no nausea, no vomiting, no diarrhea Genitourinary Female: flank pain, no dysuria, no hematuria Musculoskeletal: no neck pain, no low back pain Integumentary: no rash, no pruritis Neurological: no headaches, no change in mentation Exam - Constitutional Vitals: Temp Pulse Resp BP Pulse Ox 100.8 F H 94 H 24 147/81 95 09/27/19 02:15 09/27/19 02:15 09/27/19 02:32 09/27/19 02:31 09/27/19 02:32 General appearance: Present: no acute distress, well-nourished - EENT Eyes: Present: PERRL, EOM intact ENT: hearing intact, clear oral mucosa, dentition normal - Neck Neck: Present: supple, normal ROM - Respiratory Respiratory effort: normal Respiratory: left: diminished - Cardiovascular Rhythm: regular Heart Sounds: Present: S1 & S2 - Extremities Extremities: no ischemia, pulses intact, pulses symmetrical, No edema, Full ROM Peripheral Pulses: within normal limits - Abdominal General gastrointestinal: Present: soft, non-tender, non-distended, normal bowel sounds - Integumentary Integumentary: Present: clear, warm, dry - Musculoskeletal Musculoskeletal: strength equal bilaterally - Psychiatric Psychiatric: appropriate mood/affect, intact judgment & insight, cooperative - Neurologic Neurologic: CNII-XII intact, moves all extremities Results - Labs CBC & Chem 7: 09/27/19 00:22 09/27/19 00:22 Labs: Abnormal lab results 09/27/19 09/27/19 09/27/19 Range/Units 00:22 00:22 00:22 [place] % (Auto) 10.1 H (0.0-7.3) % D-Dimer 280.32 H (0-234) ng/mlDDU Creatinine 0.5 L (0.7-1.2) mg/dL Glucose 131 H (65-100) mg/dL ALT 68 H (7-56) units/L Total Protein 8.6 H (6.3-8.2) g/dL 09/27/19 Range/Units 00:22 [place] % (Auto) (0.0-7.3) % D-Dimer (0-234) ng/mlDDU Creatinine (0.7-1.2) mg/dL Glucose 133 H (65-100) mg/dL ALT (7-56) units/L Total Protein (6.3-8.2) g/dL Assessment and Plan - Patient Problems (1) Pneumonia Current Visit: Yes Status: Acute Plan to address problem: Patient placed on empiric IV antibiotics. We also rule out for COVID-19. [address] a consult to infectious disease for further evaluation and recommendation. (2) DVT prophylaxis Current Visit: Yes Status: Acute Plan to address problem: Patient placed on subcutaneous heparin. (3) Full code status Current Visit: Yes Status: Acute
[2019-09-27 03:35] LABS: C-Reactive Protein 5.1 mg/dL (0.00-1.30)
[2019-09-27] MEDS ORDERED: SODIUM CHLORIDE 0.9% 1000 ML 1,000 ML ONE (04:04)
[2019-09-27] MEDS: SODIUM CHLORIDE 0.9% 1000 ML 1,000 ML IV SCH ×2 (05:17→14:45)
[2019-09-27] MEDS: AZITHROMYCIN 250 MG TAB PO SCH (09:39)
[2019-09-27] MEDS: cefTRIAXone/NS 2 GM/100 ML 2 GM/100 ML BAG IV SCH (09:39)
--- NOTE | 2019-09-27 09:39 | Progress Note ---
Assessment and Plan Assessment and plan: Bilateral pneumonia. Continue IV antibiotics and follow-up serial chest x-ray. Pulmonary consulted. COVID-19 suspected. Follow-up COVID testing. Trend inflammatory markers. ID consulted Sepsis. Etiology secondary to above. Follow-up blood cultures and continue sepsis protocol. Acute hypoxic respiratory failure. Etiology secondary to above. Continue O2 to maintain sats greater than 92%. BiPAP as clinically indicated. Consult pulmonary for further evaluation. History Interval history: No new issues overnight. Hospitalist Physical - Constitutional Vitals: Temp Pulse Resp BP Pulse Ox 98.5 F 72 18 138/70 95 09/27/19 06:08 09/27/19 06:08 09/27/19 06:08 09/27/19 06:08 09/27/19 06:08 General appearance: Present: no acute distress, well-nourished - EENT Eyes: Present: PERRL, EOM intact ENT: hearing intact, clear oral mucosa, dentition normal - Neck Neck: Present: supple, normal ROM - Respiratory Respiratory effort: normal Respiratory: bilateral: CTA - Cardiovascular Rhythm: regular Heart Sounds: Present: S1 & S2. Absent: gallop, rub - Extremities Extremities: no ischemia, No edema, Full ROM - Abdominal General gastrointestinal: soft, non-tender, non-distended, normal bowel sounds - Integumentary Integumentary: Present: clear, warm, dry - Neurologic Neurologic: CNII-XII intact, moves all extremities Results - Labs CBC & Chem 7: 09/27/19 00:22 09/27/19 00:22 Labs: Laboratory Last Values WBC 6.1 K/mm3 (4.5-11.0) 09/27/19 00:22 RBC 4.83 M/mm3 (3.65-5.03) 09/27/19 00:22 Hgb 13.7 gm/dl (10.1-14.3) 09/27/19 00:22 Hct 40.1 % (30.3-42.9) 09/27/19 00:22 MCV 83 fl (79-97) 09/27/19 00:22 MCH 28 pg (28-32) 09/27/19 00:22 MCHC 34 % (30-34) 09/27/19 00:22 RDW 13.5 % (13.2-15.2) 09/27/19 00:22 Plt Count 243 K/mm3 (140-440) 09/27/19 00:22 Lymph % (Auto) 28.3 % (13.4-35.0) 09/27/19 00:22 [place] % (Auto) 10.1 % (0.0-7.3) H 09/27/19 00:22 Eos % (Auto) 0.5 % (0.0-4.3) 09/27/19 00: Baso % (Auto) 0.5 % (0.0-1.8) 09/27/19 00:22 Lymph # 1.7 K/mm3 (1.2-5.4) 09/27/19 00: [place] # 0.6 K/mm3 (0.0-0.8) 09/27/19 00: Eos # 0.0 K/mm3 (0.0-0.4) 09/27/19 00: Baso # 0.0 K/mm3 (0.0-0.1) 09/27/19 00:22 Seg Neutrophils % 60.6 % (40.0-70.0) 09/27/19 00: Seg Neutrophils # 3.7 K/mm3 (1.8-7.7) 09/27/19 00:22 D-Dimer 280.32 ng/mlDDU (0-234) H 09/27/19 00:22 Sodium 138 mmol/L (137-145) 09/27/19 00:22 Potassium 3.7 mmol/L (3.6-5.0) 09/27/19 00: Chloride 98.6 mmol/L (98-107) 09/27/19 00: Carbon Dioxide 24 mmol/L (22-30) 09/27/19 00: Anion Gap 19 mmol/L 09/27/19 00:22 BUN 10 mg/dL (7-17) 09/27/19 00: Creatinine 0.5 mg/dL (0.7-1.2) L 09/27/19 00:22 Estimated GFR > 60 ml/min 09/27/19 00: BUN/Creatinine Ratio 20 % 09/27/19 00: Glucose 131 mg/dL (65-100) H 09/27/19 00:22 Glucose 133 mg/dL (65-100) H 09/27/19 00:22 Calcium 9.4 mg/dL (8.4-10.2) 09/27/19 00:22 Ferritin 418.6 ng/mL (13.0-400.0) H 09/27/19 00:22 Total Bilirubin 0.40 mg/dL (0.1-1.2) 09/27/19 00:22 AST 40 units/L (5-40) 09/27/19 00:22 ALT 68 units/L (7-56) H 09/27/19 00:22 Alkaline Phosphatase 84 units/L (35-129) 09/27/19 00:22 Lactate Dehydrogenase 250 units/L (91-180) H 09/27/19 00:22 C-Reactive Protein 5.10 mg/dL (0.00-1.30) H 09/27/19 00:22 Total Protein 8.6 g/dL (6.3-8.2) H 09/27/19 00:22 Albumin 4.4 g/dL (3.9-5) 09/27/19 00:22 Albumin/Globulin Ratio 1.0 % 09/27/19 00:22 Urine Color Yellow (Yellow) 09/26/19 22:30 Urine Turbidity Clear (Clear) 09/26/19 22:30 Urine pH 6.0 (5.0-7.0) 09/26/19 22:30 Ur Specific [place] 1.020 (1.003-1.030) 09/26/19 22:30 Urine Protein 30 mg/dl mg/dL (Negative) 09/26/19 22:30 Urine Glucose (UA) Neg mg/dL (Negative) 09/26/19 22:30 Urine Ketones Neg mg/dL (Negative) 09/26/19 22:30 Urine Blood Neg (Negative) 09/26/19 22:30 Urine Nitrite Neg (Negative) 09/26/19 22:30 Urine Bilirubin Neg (Negative) 09/26/19 22:30 Urine Urobilinogen 2.0 mg/dL (<2.0) 09/26/19 22:30 Ur Leukocyte Esterase Neg (Negative) 09/26/19 22:30 Urine WBC (Auto) 2.0 /HPF (0.0-6.0) 09/26/19 22:30 Urine RBC (Auto) 2.0 /HPF (0.0-6.0) 09/26/19 22:30 U Epithel Cells (Auto) 7.0 /HPF (0-13.0) 09/26/19 22:30 Urine Mucus Few /HPF 09/26/19 22:30 Urine HCG, Qual Negative (Negative) 09/26/19 22:30 Rivera/IV: Voiding Method Toilet IV Catheter Type [Right Peripheral IV Antecubital] Active Medications - Current Medications Current Medications: Generic Name Dose Route Start Last Admin Trade Name Freq PRN Reason Stop Dose Admin Acetaminophen 650 mg 09/27/19 02:29 Tylenol PO Q4H PRN Pain MILD(1-3)/Fever >100.5/HERNANDEZ Azithromycin 500 mg 09/27/19 10:00 Zithromax PO QDAY AGNIESZKA Heparin Sodium (Porcine) 5,000 unit 09/27/19 14:00 Heparin SUB-Q Q8HR [facility] Sodium Chloride 1,000 mls @ 125 mls/hr 09/27/19 02:30 09/27/19 05:17 Nacl 0.9% 1000 Ml IV 125 mls/hr DIRECT AGNIESZKA Administration Ceftriaxone Sodium 2 gm in 100 mls @ 200 mls/hr 09/27/19 10:00 Rocephin/Ns 2 Gm/100 Ml IV Q24HR [facility] Protocol Magnesium Hydroxide 30 ml 09/27/19 02:29 Milk Of Magnesia PO Q4H PRN Constipation Ondansetron HCl 4 mg 09/27/19 02:29 Zofran IV Q8H PRN Nausea And Vomiting Sodium Chloride 10 ml 09/27/19 10:00 Sodium Chloride Flush Syringe 10 Ml IV BID AGNIESZKA Sodium Chloride 10 ml 09/27/19 02:29 Sodium Chloride Flush Syringe 10 Ml IV PRN PRN LINE FLUSH
[2019-09-27] MEDS ORDERED: AZITHROMYCIN 500 MG in SODIUM CHLORIDE 0.9% 250ML 250 ML IV SCH (10:00)
[2019-09-27 11:54] LABS: C-Reactive Protein 3.9 mg/dL (0.00-1.30)
[2019-09-27] MEDS: HEPARIN 5,000 UNIT/1 ML VIAL SUB-Q SCH ×2 (14:44→21:26)
--- NOTE | 2019-09-27 15:27 | Consultation ---
History of Present Illness Consult date: 09/27/19 Requesting physician: ELIJAH JEFFERS Reason for consult: pneumonia, other (COVID 19 infection) History of present illness: PULMONARY/CCM CONSULT NOTE (Full dictation # [id number]) Please see dictated notes for full details Past History Past Medical History: No medical history Past Surgical History: No surgical history Social history: no significant social history Family history: no significant family history Medications and Allergies Allergies Allergy/AdvReac Type Severity Reaction Status Date / Time No Known Allergies Allergy Verified 05/09/17 10:36 Home Medications Medication Instructions Recorded Confirmed Last Taken Type Ascorbic Acid [Vitamin C] 500 mg PO BID #60 tablet 09/30/19 Unknown Rx Cholecalciferol (Vitamin D3) 5,000 unit PO QDAY #30 tablet 09/30/19 Unknown Rx [Vitamin D3] Active Meds: Active Medications Acetaminophen (Tylenol) 650 mg PO Q4H PRN PRN Reason: Pain MILD(1-3)/Fever >100.5/HERNANDEZ Last Admin: 09/27/19 14:45 Dose: 650 mg Documented by: Azithromycin (Zithromax) 500 mg PO QDAY [facility] Last Admin: 09/27/19 09:39 Dose: 500 mg Documented by: Heparin Sodium (Porcine) (Heparin) 5,000 unit SUB-Q Q8HR AGNIESZKA Last Admin: 09/27/19 14:44 Dose: 5,000 unit Documented by: Sodium Chloride (Nacl 0.9% 1000 Ml) 1,000 mls @ 125 mls/hr IV DIRECT AGNIESZKA Last Admin: 09/27/19 14:45 Dose: 125 mls/hr Documented by: Ceftriaxone Sodium (Rocephin/Ns 2 Gm/100 Ml) 2 gm in 100 mls @ 200 mls/hr IV Q24HR AGNIESZKA; Protocol Last Admin: 09/27/19 09:39 Dose: 200 mls/hr Documented by: Magnesium Hydroxide (Milk Of Magnesia) 30 ml PO Q4H PRN PRN Reason: Constipation Ondansetron HCl (Zofran) 4 mg IV Q8H PRN PRN Reason: Nausea And Vomiting Sodium Chloride (Sodium Chloride Flush Syringe 10 Ml) 10 ml IV BID [facility] Last Admin: 09/27/19 09:39 Dose: 10 ml Documented by: Sodium Chloride (Sodium Chloride Flush Syringe 10 Ml) 10 ml IV PRN PRN PRN Reason: LINE FLUSH Physical Examination Vital signs: Vital Signs Temp Pulse Resp BP Pulse Ox 99.9 F H 102 H 18 156/75 94 09/26/19 22:08 09/26/19 22:08 09/26/19 22:08 09/26/19 22:08 09/26/19 22:08 Results - Laboratory Findings CBC and BMP: 09/29/19 04:34 09/29/19 04:34 PT/INR, D-dimer D-Dimer 202.77 ng/mlDDU (0-234) 09/27/19 Unknown Abnormal lab findings: Abnormal Labs 09/27/19 09/27/19 09/27/19 00:22 00:22 00:22 [place] % (Auto) 10.1 H D-Dimer 280.32 H Creatinine 0.5 L Glucose 131 H Ferritin ALT 68 H Lactate Dehydrogenase C-Reactive Protein Total Protein 8.6 H Coronavirus (PCR) 09/27/19 09/27/19 09/27/19 00:22 00:22 07:37 [place] % (Auto) D-Dimer Creatinine Glucose 133 H Ferritin 418.6 H ALT Lactate Dehydrogenase 250 H C-Reactive Protein 5.10 H Total Protein Coronavirus (PCR) Positive A 09/27/19 Unknown [place] % (Auto) D-Dimer Creatinine Glucose 147 H Ferritin ALT Lactate Dehydrogenase 252 H C-Reactive Protein 3.90 H Total Protein Coronavirus (PCR)
--- NOTE | 2019-09-27 16:09 | Consultation ---
History of Present Illness - Reason for Consult Consult date: 09/27/19 - History of Present Illness 34-year-old female no past medical history admitted to the hospital with lower back pain for the past 2 days. She notes some pain with urination, and was concerned for on admission. She also complained of fever and sore throat with associated headache that resolved the day prior to admission. She denies any trauma or recent injury to her back to cause the pain. She took ibuprofen on the day prior to admission which did help with the pain. Otherwise she has no acute complaints. COVID-19 testing was positive after having an x- ray with patchy bilateral airspace disease Febrile to 100.8 with a normal white count. Currently seeing ceftriaxone and azithromycin. No cultures available for review. COVID-19 testing positive Imaging personally reviewed: Chest x-ray: Patchy airspace opacities bilaterally. Review of Systems: Bold if positive, otherwise negative General: fevers, chills, rigors HEENT: visual disturbance, diplopia, eye pain Respiratory: cough, sputum, hemoptysis, shortness of breath Cardiovascular: chest pain, syncope Gastrointestinal: nausea, vomiting, diarrhea, abdominal pain Genitourinary: dysuria, hematuria, flank pain Musculoskeletal: neck pain, back pain, joint pain, edema Neurologic: headaches, seizures Hematologic: easy bruising or bleeding Endocrine: night sweats, acute weight loss Skin: rash, jaundice, redness Psychiatric: suicidal, homicidal ideation Past History Past Medical History: No medical history Past Surgical History: No surgical history Social history: no significant social history Family history: no significant family history Medications and Allergies Allergies Allergy/AdvReac Type Severity Reaction Status Date / Time No Known Allergies Allergy Verified 05/09/17 10:36 Home Medications Medication Instructions Recorded Confirmed Last Taken Type Ibuprofen [Motrin 600 MG tab] 600 mg PO Q8H PRN #30 tablet 05/09/17 09/27/19 Unknown Rx Active Meds: Active Medications Acetaminophen (Tylenol) 650 mg PO Q4H PRN PRN Reason: Pain MILD(1-3)/Fever >100.5/HERNANDEZ Last Admin: 09/27/19 14:45 Dose: 650 mg Documented by: Azithromycin (Zithromax) 500 mg PO QDAY AGNIESZKA Last Admin: 09/27/19 09:39 Dose: 500 mg Documented by: Heparin Sodium (Porcine) (Heparin) 5,000 unit SUB-Q Q8HR [facility] Last Admin: 09/27/19 14:44 Dose: 5,000 unit Documented by: Sodium Chloride (Nacl 0.9% 1000 Ml) 1,000 mls @ 125 mls/hr IV DIRECT [facility] Last Admin: 09/27/19 14:45 Dose: 125 mls/hr Documented by: Ceftriaxone Sodium (Rocephin/Ns 2 Gm/100 Ml) 2 gm in 100 mls @ 200 mls/hr IV Q24HR AGNIESZKA; Protocol Last Admin: 09/27/19 09:39 Dose: 200 mls/hr Documented by: Magnesium Hydroxide (Milk Of Magnesia) 30 ml PO Q4H PRN PRN Reason: Constipation Ondansetron HCl (Zofran) 4 mg IV Q8H PRN PRN Reason: Nausea And Vomiting Sodium Chloride (Sodium Chloride Flush Syringe 10 Ml) 10 ml IV BID [facility] Last Admin: 09/27/19 09:39 Dose: 10 ml Documented by: Sodium Chloride (Sodium Chloride Flush Syringe 10 Ml) 10 ml IV PRN PRN PRN Reason: LINE FLUSH Physical Examination - Physical Exam Narrative exam: Physical exam deferred due to PPE conservation strategy. Reviewed physical exam with primary team note. - Constitutional Vitals: Vital Signs Temp Pulse Resp BP Pulse Ox 99.8 F H 84 15 120/58 94 09/27/19 11:56 09/27/19 11:56 09/27/19 11:56 09/27/19 11:56 09/27/19 11:56 Temperature -Last 24 Hours Temperature 99.8 F Temperature 98.5 F Temperature 99.0 F Temperature 100.8 F Temperature 99.8 F Temperature 99.9 F Results - Labs CBC & Chem 7: 09/27/19 00:22 09/27/19 Unknown Labs: Abnormal lab results 09/27/19 09/27/19 09/27/19 Range/Units 00:22 00:22 00:22 [place] % (Auto) 10.1 H (0.0-7.3) % D-Dimer 280.32 H (0-234) ng/mlDDU Creatinine 0.5 L (0.7-1.2) mg/dL Glucose 131 H (65-100) mg/dL Ferritin (13.0-400.0) ng/mL ALT 68 H (7-56) units/L Lactate Dehydrogenase (91-180) units/L C-Reactive Protein (0.00-1.30) mg/dL Total Protein 8.6 H (6.3-8.2) g/dL Coronavirus (PCR) (Negative) 09/27/19 09/27/19 09/27/19 Range/Units 00:22 00:22 07:37 [place] % (Auto) (0.0-7.3) % D-Dimer (0-234) ng/mlDDU Creatinine (0.7-1.2) mg/dL Glucose 133 H (65-100) mg/dL Ferritin 418.6 H (13.0-400.0) ng/mL ALT (7-56) units/L Lactate Dehydrogenase 250 H (91-180) units/L C-Reactive Protein 5.10 H (0.00-1.30) mg/dL Total Protein (6.3-8.2) g/dL Coronavirus (PCR) Positive A (Negative) 09/27/19 Range/Units Unknown [place] % (Auto) (0.0-7.3) % D-Dimer (0-234) ng/mlDDU Creatinine (0.7-1.2) mg/dL Glucose 147 H (65-100) mg/dL Ferritin (13.0-400.0) ng/mL ALT (7-56) units/L Lactate Dehydrogenase 252 H (91-180) units/L C-Reactive Protein 3.90 H (0.00-1.30) mg/dL Total Protein (6.3-8.2) g/dL Coronavirus (PCR) (Negative) Assessment and Plan Cultures: None A/P: 34-year-old female no past medical history admitted with: #COVID-19: Continue supportive care for now, inflammatory markers appear to be improving. Okay to continue empiric ceftriaxone azithromycin for now pending procalcitonin in a.m. #Obesity: High risk for decompensation, clotting complications. Recs: -Continue supportive care -Procalcitonin in morning labs -Follow inflammatory markers to include LDH, CRP, ferritin, d-dimer every 48 hours -Continue ceftriaxone azithromycin for now, stop if procalcitonin normal. Thank you for the consult, we will continue to follow. MD Lucia Murillo [facility] ([facility]) M: [phone] O: [phone] F: [phone]
[2019-09-28] MEDS: SODIUM CHLORIDE 0.9% 1000 ML 1,000 ML IV SCH (01:57)
[2019-09-28 05:38] LABS: Basophils % (Auto) 0.2 % (0.0-1.8); Eosinophils # (Auto) 0.2 K/mm3 (0.0-0.4); Eosinophils % (Auto) 3.8 % (0.0-4.3); Hematocrit 38.6 % (30.3-42.9); Hemoglobin 12.8 gm/dl (10.1-14.3); Lymphocytes # (Auto) 1.5 K/mm3 (1.2-5.4); Lymphocytes % (Auto) 33.2 % (13.4-35.0); Mean Corpuscular HGB Conc 33 % (30-34); Mean Corpuscular Volume 84 fl (79-97); Monocytes # (Auto) 0.5 K/mm3 (0.0-0.8); Monocytes % (Auto) 10.9 % (0.0-7.3); Platelet Count 244 K/mm3 (140-440); Red Blood Count 4.58 M/mm3 (3.65-5.03); Red Cell Distribution Width 13.3 % (13.2-15.2)
[2019-09-28 05:47] LABS: INR 0.98 (0.87-1.13)
[2019-09-28 05:48] LABS: Partial Thromboplastin Time 28.7 Sec. (24.2-36.6)
[2019-09-28 05:57] LABS: BUN/Creatinine Ratio 18; Blood Urea Nitrogen 7 mg/dL (7-17); Calcium 8.4 mg/dL (8.4-10.2); Hemolysis Index 1
[2019-09-28] MEDS: HEPARIN 5,000 UNIT/1 ML VIAL SUB-Q SCH ×3 (06:00→22:11)
[2019-09-28] MEDS: cefTRIAXone/NS 2 GM/100 ML 2 GM/100 ML BAG IV SCH (09:37)
[2019-09-28] MEDS: AZITHROMYCIN 250 MG TAB PO SCH (09:37)
--- NOTE | 2019-09-28 10:51 | Progress Note ---
Assessment and Plan Assessment and plan: Bilateral pneumonia. Continue IV antibiotics and follow-up serial chest x-ray. Pulmonary consulted. COVID-19 infection. Follow-up COVID testing. Trend inflammatory markers. ID consulted Sepsis. Etiology secondary to above. Follow-up blood cultures and continue sepsis protocol. Acute hypoxic respiratory failure. Etiology secondary to above. Continue O2 to maintain sats greater than 92%. BiPAP as clinically indicated. Consult pulmonary for further evaluation. Obesity. Patient with high risk for decompensation and clotting complications. 09/28/2019. COVID 19+ PCR 09/27/2019. Continue to follow inflammatory markers of LDH, CRP, ferritin and d-dimer. Continue ceftriaxone and azithromycin per ID recommendations. Pulmonary also following. History Interval history: No new issues overnight. Hospitalist Physical - Constitutional Vitals: Temp Pulse Resp BP Pulse Ox 98.2 F 64 18 140/71 92 09/28/19 05:50 09/28/19 10:00 09/28/19 10:00 09/28/19 05:50 09/28/19 10:00 General appearance: Present: no acute distress, well-nourished - EENT Eyes: Present: PERRL, EOM intact ENT: hearing intact, clear oral mucosa, dentition normal - Neck Neck: Present: supple, normal ROM - Respiratory Respiratory effort: normal Respiratory: bilateral: CTA - Cardiovascular Rhythm: regular Heart Sounds: Present: S1 & S2. Absent: gallop, rub - Extremities Extremities: no ischemia, No edema, Full ROM - Abdominal General gastrointestinal: soft, non-tender, non-distended, normal bowel sounds - Integumentary Integumentary: Present: clear, warm, dry - Neurologic Neurologic: CNII-XII intact, moves all extremities Results - Labs CBC & Chem 7: 09/28/19 05:07 09/28/19 05:07 Labs: Laboratory Last Values WBC 4.6 K/mm3 (4.5-11.0) 09/28/19 05:07 RBC 4.58 M/mm3 (3.65-5.03) 09/28/19 05:07 Hgb 12.8 gm/dl (10.1-14.3) 09/28/19 05:07 Hct 38.6 % (30.3-42.9) 09/28/19 05:07 MCV 84 fl (79-97) 09/28/19 05:07 MCH 28 pg (28-32) 09/28/19 05:07 MCHC 33 % (30-34) 09/28/19 05:07 RDW 13.3 % (13.2-15.2) 09/28/19 05:07 Plt Count 244 K/mm3 (140-440) 09/28/19 05:07 Lymph % (Auto) 33.2 % (13.4-35.0) 09/28/19 05:07 [place] % (Auto) 10.9 % (0.0-7.3) H 09/28/19 05:07 Eos % (Auto) 3.8 % (0.0-4.3) 09/28/19 05:07 Baso % (Auto) 0.2 % (0.0-1.8) 09/28/19 05:07 Lymph # 1.5 K/mm3 (1.2-5.4) 09/28/19 05:07 [place] # 0.5 K/mm3 (0.0-0.8) 09/28/19 05:07 Eos # 0.2 K/mm3 (0.0-0.4) 09/28/19 05:07 Baso # 0.0 K/mm3 (0.0-0.1) 09/28/19 05:07 Seg Neutrophils % 51.9 % (40.0-70.0) 09/28/19 05:07 Seg Neutrophils # 2.4 K/mm3 (1.8-7.7) 09/28/19 05:07 PT 13.1 Sec. (12.2-14.9) 09/28/19 05:07 INR 0.98 (0.87-1.13) 09/28/19 05:07 APTT 28.7 Sec. (24.2-36.6) 09/28/19 05:07 D-Dimer 202.77 ng/mlDDU (0-234) 09/27/19 Unknown Sodium 141 mmol/L (137-145) 09/28/19 05:07 Potassium 3.9 mmol/L (3.6-5.0) 09/28/19 05:07 Chloride 102.9 mmol/L (98-107) 09/28/19 05:07 Carbon Dioxide 25 mmol/L (22-30) 09/28/19 05:07 Anion Gap 17 mmol/L 09/28/19 05:07 BUN 7 mg/dL (7-17) 09/28/19 05:07 Creatinine 0.4 mg/dL (0.7-1.2) L 09/28/19 05:07 Estimated GFR > 60 ml/min 09/28/19 05:07 BUN/Creatinine Ratio 18 % 09/28/19 05:07 Glucose 106 mg/dL (65-100) H 09/28/19 05:07 Calcium 8.4 mg/dL (8.4-10.2) 09/28/19 05:07 Ferritin 360.1 ng/mL (13.0-400.0) 09/27/19 Unknown Total Bilirubin 0.40 mg/dL (0.1-1.2) 09/27/19 00:22 AST 40 units/L (5-40) 09/27/19 00:22 ALT 68 units/L (7-56) H 09/27/19 00:22 Alkaline Phosphatase 84 units/L (35-129) 09/27/19 00:22 Lactate Dehydrogenase 252 units/L (91-180) H 09/27/19 Unknown C-Reactive Protein 3.90 mg/dL (0.00-1.30) H 09/27/19 Unknown Total Protein 8.6 g/dL (6.3-8.2) H 09/27/19 00:22 Albumin 4.4 g/dL (3.9-5) 09/27/19 00:22 Albumin/Globulin Ratio 1.0 % 09/27/19 00:22 Procalcitonin < 0.05 ng/mL (<0.15) 09/28/19 05:07 Urine Color Yellow (Yellow) 09/26/19 22:30 Urine Turbidity Clear (Clear) 09/26/19 22:30 Urine pH 6.0 (5.0-7.0) 09/26/19 22:30 Ur Specific [place] 1.020 (1.003-1.030) 09/26/19 22:30 Urine Protein 30 mg/dl mg/dL (Negative) 09/26/19 22:30 Urine Glucose (UA) Neg mg/dL (Negative) 09/26/19 22:30 Urine Ketones Neg mg/dL (Negative) 09/26/19 22:30 Urine Blood Neg (Negative) 09/26/19 22:30 Urine Nitrite Neg (Negative) 09/26/19 22:30 Urine Bilirubin Neg (Negative) 09/26/19 22:30 Urine Urobilinogen 2.0 mg/dL (<2.0) 09/26/19 22:30 Ur Leukocyte Esterase Neg (Negative) 09/26/19 22:30 Urine WBC (Auto) 2.0 /HPF (0.0-6.0) 09/26/19 22:30 Urine RBC (Auto) 2.0 /HPF (0.0-6.0) 09/26/19 22:30 U Epithel Cells (Auto) 7.0 /HPF (0-13.0) 09/26/19 22:30 Urine Mucus Few /HPF 09/26/19 22:30 Urine HCG, Qual Negative (Negative) 09/26/19 22:30 Coronavirus (PCR) Positive (Negative) A 09/27/19 07:37 Rivera/IV: Voiding Method Toilet IV Catheter Type [Right Peripheral IV Antecubital] Active Medications - Current Medications Current Medications: Generic Name Dose Route Start Last Admin Trade Name Freq PRN Reason Stop Dose Admin Acetaminophen 650 mg 09/27/19 02:29 09/27/19 14:45 Tylenol PO 650 mg Q4H PRN Administration Pain MILD(1-3)/Fever >100.5/HERNANDEZ Azithromycin 500 mg 09/27/19 10:00 09/28/19 09:37 Zithromax PO 500 mg QDAY AGNIESZKA Administration Heparin Sodium (Porcine) 5,000 unit 09/27/19 14:00 09/28/19 06:00 Heparin SUB-Q 5,000 unit Q8HR AGNIESZKA Administration Sodium Chloride 1,000 mls @ 125 mls/hr 09/27/19 02:30 09/28/19 01:57 Nacl 0.9% 1000 Ml IV 125 mls/hr DIRECT AGNIESZKA Administration Ceftriaxone Sodium 2 gm in 100 mls @ 200 mls/hr 09/27/19 10:00 09/28/19 09:37 Rocephin/Ns 2 Gm/100 Ml IV 200 mls/hr Q24HR AGNIESZKA Administration Protocol Magnesium Hydroxide 30 ml 09/27/19 02:29 Milk Of Magnesia PO Q4H PRN Constipation Ondansetron HCl 4 mg 05/17/20 02:29 Zofran IV Q8H PRN Nausea And Vomiting Sodium Chloride 10 ml 09/27/19 10:00 09/28/19 09:37 Sodium Chloride Flush Syringe 10 Ml IV 10 ml BID AGNIESZKA Administration Sodium Chloride 10 ml 09/27/19 02:29 Sodium Chloride Flush Syringe 10 Ml IV PRN PRN LINE FLUSH
--- NOTE | 2019-09-28 11:34 | Consultation ---
History of Present Illness - Reason for Consult Consult date: 09/28/19 Past History Past Medical History: No medical history Past Surgical History: No surgical history Social history: no significant social history Family history: no significant family history Medications and Allergies Allergies Allergy/AdvReac Type Severity Reaction Status Date / Time No Known Allergies Allergy Verified 05/09/17 10:36 Home Medications Medication Instructions Recorded Confirmed Last Taken Type Ibuprofen [Motrin 600 MG tab] 600 mg PO Q8H PRN #30 tablet 05/09/17 09/27/19 Unknown Rx Active Meds: Active Medications Acetaminophen (Tylenol) 650 mg PO Q4H PRN PRN Reason: Pain MILD(1-3)/Fever >100.5/HERNANDEZ Last Admin: 09/27/19 14:45 Dose: 650 mg Documented by: Azithromycin (Zithromax) 500 mg PO QDAY [facility] Last Admin: 09/28/19 09:37 Dose: 500 mg Documented by: Heparin Sodium (Porcine) (Heparin) 5,000 unit SUB-Q Q8HR [facility] Last Admin: 09/28/19 06:00 Dose: 5,000 unit Documented by: Sodium Chloride (Nacl 0.9% 1000 Ml) 1,000 mls @ 125 mls/hr IV DIRECT [facility] Last Admin: 09/28/19 01:57 Dose: 125 mls/hr Documented by: Ceftriaxone Sodium (Rocephin/Ns 2 Gm/100 Ml) 2 gm in 100 mls @ 200 mls/hr IV Q24HR [facility]; Protocol Last Admin: 09/28/19 09:37 Dose: 200 mls/hr Documented by: Magnesium Hydroxide (Milk Of Magnesia) 30 ml PO Q4H PRN PRN Reason: Constipation Ondansetron HCl (Zofran) 4 mg IV Q8H PRN PRN Reason: Nausea And Vomiting Sodium Chloride (Sodium Chloride Flush Syringe 10 Ml) 10 ml IV BID [facility] Last Admin: 09/28/19 09:37 Dose: 10 ml Documented by: Sodium Chloride (Sodium Chloride Flush Syringe 10 Ml) 10 ml IV PRN PRN PRN Reason: LINE FLUSH Physical Examination - Constitutional Vitals: Vital Signs Temp Pulse Resp BP Pulse Ox 98.2 F 64 18 140/71 92 09/28/19 05:50 09/28/19 10:00 09/28/19 10:00 09/28/19 05:50 09/28/19 10:00 Temperature -Last 24 Hours Temperature 98.2 F Temperature 98.5 F Temperature 97.8 F Temperature 99.8 F Results - Labs CBC & Chem 7: 09/28/19 05:07 09/28/19 05:07 Labs: Abnormal lab results 09/27/19 09/28/19 09/28/19 Range/Units Unknown 05:07 05:07 [place] % (Auto) 10.9 H (0.0-7.3) % Creatinine 0.4 L (0.7-1.2) mg/dL Glucose 147 H 106 H (65-100) mg/dL Lactate Dehydrogenase 252 H (91-180) units/L C-Reactive Protein 3.90 H (0.00-1.30) mg/dL Assessment and Plan Cultures: None A/P: 34-year-old female no past medical history admitted with: #COVID-19: Continue supportive care for now, inflammatory markers appear to be improving. Okay to continue empiric ceftriaxone azithromycin for now pending procalcitonin in a.m. #Obesity: High risk for decompensation, clotting complications. Recs: -Continue supportive care -Procalcitonin in morning labs -Follow inflammatory markers to include LDH, CRP, ferritin, d-dimer every 48 hours -Continue ceftriaxone azithromycin for now, stop if procalcitonin normal.
--- NOTE | 2019-09-28 11:38 | Progress Note ---
Assessment and Plan Cultures: None A/P: 34-year-old female no past medical history admitted with: #COVID-19 pneumonia: No evidence of ongoing cytokine storm- ferritin 418-->360, LDH 250-->250, CRP 5.1-->3.9, Ddimer 280-->202. CXR with patchy airspace disease arabella. Procal <0.05 (no evidence of bacterial pneumonia) O2 sat 95% on room air, down to 92% after exercise. #Obesity: High risk for decompensation, clotting complications. Recs: -Continue supportive care -repeat markers and exercise O2 in the AM, if normal OK to d/c home -vit C and vit D -stop ceftriaxone azithromycin- procal normal Will follow. Zoila Luo MD Infectious Diseases Digital Marketing Apprentice [facility] ([facility]) M [phone] O [phone] Subjective Date of service: 09/28/19 Principal diagnosis: COVID Interval history: Feels much better, no fever, no SOB on room air Objective - Exam Narrative Exam: General appearance: Alert in NAD on room air Eyes: anicteric sclerae, PERRLA HENT: Atraumatic; oropharynx clear Lungs: limited CV: RRR Abdomen: Soft, non-tender Extremities: no edema, no cyanosis Skin: No rash. Psych: no agitated Neuro: alert and oriented x 3. Moving all extermities - Constitutional Vitals: Vital Signs Temp Pulse Resp BP Pulse Ox 98.2 F 64 18 140/71 92 09/28/19 05:50 09/28/19 10:00 09/28/19 10:00 09/28/19 05:50 09/28/19 10:00 Temperature -Last 24 Hours Temperature 98.2 F Temperature 98.5 F Temperature 97.8 F Temperature 99.8 F - Labs CBC & Chem 7: 09/28/19 05:07 09/28/19 05:07 Labs: Abnormal lab results 09/27/19 09/28/19 09/28/19 Range/Units Unknown 05:07 05:07 [place] % (Auto) 10.9 H (0.0-7.3) % Creatinine 0.4 L (0.7-1.2) mg/dL Glucose 147 H 106 H (65-100) mg/dL Lactate Dehydrogenase 252 H (91-180) units/L C-Reactive Protein 3.90 H (0.00-1.30) mg/dL
[2019-09-28] MEDS: ASCORBIC ACID 500 MG TAB PO SCH ×2 (13:13→22:11)
[2019-09-28] MEDS: CHOLECALCIFEROL (VIT D3) 5,000 UNIT TAB PO SCH (14:39)
--- NOTE | 2019-09-28 16:37 | Progress Note ---
Assessment and Plan COVID-19 infection Morbid Obesity -O2 sat 95% on room air, down to 92% after exercise. -VTE prophylaxis -Antibiotics for CAP, discontinued this morning -Follow up CXR in am -Conservative fluid management, intermittent diuretics if indicated -Continue with continuous O2 and telemetry monitoring -Continue supportive care -Repeat markers and exercise O2 in the AM, if exercise O2 sast >92%, ok to discahrge with out patient follow up -Supplemetnal vitamins for COVID infection -Weight loss counselling, life style modifications Discussed with ID and Dr. Garza Discharge planning Subjective Date of service: 09/28/19 Principal diagnosis: COVID Interval history: Follow up for COVID infection; Bilateral infiltrates on CXR Seen and examined. Vitals, labs, medications,, chart and imaging reviewed. No adverse overnight events. Denies any chest pain, no shortness of breath, no fevers or chills. No diarrhea or vomiting. Not requiring supplemental oxygen therapy Objective Vital Signs - 12hr 09/28/19 09/28/19 09/28/19 05:50 10:00 11:40 Temperature 98.2 F 99.1 F Pulse Rate 65 64 77 Respiratory 18 18 20 Rate Blood Pressure 140/71 152/77 O2 Sat by Pulse 98 92 92 Oximetry Constitutional: no acute distress, alert Eyes: non-icteric ENT: oropharynx moist Neck: supple, no lymphadenopathy, no JVD Effort: normal Ascultation: Bilateral: clear, diminished breath sounds Cardiovascular: regular rate and rhythm, other (S1,S2, no murmurs) Gastrointestinal: normoactive bowel sounds, soft, non-tender, non-distended Integumentary: normal Extremities: no cyanosis, no edema, pink and warm, pulses normal Neurologic: normal mental status, non-focal exam, pupils equal and round, motor strength normal and Psychiatric: mood appropriate, affect normal CBC and BMP: 09/29/19 04:34 09/29/19 04:34 ABG, PT/INR, D-dimer: PT/INR, D-dimer PT 13.1 Sec. (12.2-14.9) 09/28/19 05:07 INR 0.98 (0.87-1.13) 09/28/19 05:07 D-Dimer 202.77 ng/mlDDU (0-234) 09/27/19 Unknown Abnormal lab findings: Abnormal Labs 09/27/19 09/27/19 09/27/19 00:22 00:22 00:22 [place] % (Auto) 10.1 H D-Dimer 280.32 H Creatinine 0.5 L Glucose 131 H Ferritin ALT 68 H Lactate Dehydrogenase C-Reactive Protein Total Protein 8.6 H Coronavirus (PCR) 09/27/19 09/27/19 09/27/19 00:22 00:22 07:37 [place] % (Auto) D-Dimer Creatinine Glucose 133 H Ferritin 418.6 H ALT Lactate Dehydrogenase 250 H C-Reactive Protein 5.10 H Total Protein Coronavirus (PCR) Positive A 09/27/19 09/28/19 09/28/19 Unknown 05:07 05:07 [place] % (Auto) 10.9 H D-Dimer Creatinine 0.4 L Glucose 147 H 106 H Ferritin ALT Lactate Dehydrogenase 252 H C-Reactive Protein 3.90 H Total Protein Coronavirus (PCR) Chest x-ray: image reviewed Allied health notes reviewed: nursing
[2019-09-29] MEDS: HEPARIN 5,000 UNIT/1 ML VIAL SUB-Q SCH ×3 (05:41→21:03)
[2019-09-29 05:42] LABS: Basophils % (Auto) 0.3 % (0.0-1.8); Eosinophils # (Auto) 0.3 K/mm3 (0.0-0.4); Eosinophils % (Auto) 4.5 % (0.0-4.3); Hematocrit 39.1 % (30.3-42.9); Hemoglobin 13.3 gm/dl (10.1-14.3); Lymphocytes # (Auto) 2.4 K/mm3 (1.2-5.4); Lymphocytes % (Auto) 38.9 % (13.4-35.0); Mean Corpuscular HGB Conc 34 % (30-34); Mean Corpuscular Volume 84 fl (79-97); Monocytes # (Auto) 0.8 K/mm3 (0.0-0.8); Monocytes % (Auto) 13.3 % (0.0-7.3); Platelet Count 309 K/mm3 (140-440); Red Blood Count 4.67 M/mm3 (3.65-5.03); Red Cell Distribution Width 13.5 % (13.2-15.2)
[2019-09-29 05:59] LABS: BUN/Creatinine Ratio 25; Blood Urea Nitrogen 10 mg/dL (7-17); Hemolysis Index 3
[2019-09-29] MEDS ORDERED: POTASSIUM CHLORIDE ER 20 MEQ TAB PO ONE (09:00)
[2019-09-29] MEDS: CHOLECALCIFEROL (VIT D3) 5,000 UNIT TAB PO SCH (10:00)
[2019-09-29] MEDS: ASCORBIC ACID 500 MG TAB PO SCH ×2 (10:01→21:03)
--- NOTE | 2019-09-29 10:36 | Progress Note ---
Assessment and Plan Cultures: None A/P: 34-year-old female no past medical history admitted with: #COVID-19 pneumonia: No evidence of ongoing cytokine storm- ferritin 418-->360, LDH 250-->250, CRP 5.1-->3.9, Ddimer 280-->202. CXR with patchy airspace disease arabella. Procal <0.05 (no evidence of bacterial pneumonia) O2 sat 95% on room air, down to 92% after exercise. #Obesity: High risk for decompensation, clotting complications. Recs: -Continue supportive care -repeat markers and exercise O2 now, if normal OK to d/c home -vit C and vit D Will follow. Zoila Luo MD Infectious Diseases Audience Development Manager [facility] ([facility]) M [phone] O [phone] Subjective Date of service: 09/29/19 Principal diagnosis: COVID Interval history: Feels much better, no fever, no SOB on room air Objective - Exam Narrative Exam: General appearance: Alert in NAD on room air Eyes: anicteric sclerae, PERRLA HENT: Atraumatic; oropharynx clear Lungs: limited CV: RRR Abdomen: Soft, non-tender Extremities: no edema, no cyanosis Skin: No rash. Psych: no agitated Neuro: alert and oriented x 3. Moving all extermities - Constitutional Vitals: Vital Signs Temp Pulse Resp BP Pulse Ox 98.0 F 63 16 151/70 97 09/29/19 05:44 09/29/19 08:35 09/29/19 08:31 09/29/19 05:44 09/29/19 08:31 Temperature -Last 24 Hours Temperature 98.0 F Temperature 98.2 F Temperature 98.6 F Temperature 99.1 F - Labs CBC & Chem 7: 09/29/19 04:34 09/29/19 04:34 Labs: Abnormal lab results 09/29/19 09/29/19 Range/Units 04:34 04:34 Lymph % (Auto) 38.9 H (13.4-35.0) % [place] % (Auto) 13.3 H (0.0-7.3) % Eos % (Auto) 4.5 H (0.0-4.3) % Potassium 3.4 L (3.6-5.0) mmol/L Creatinine 0.4 L (0.7-1.2) mg/dL
[2019-09-29 11:22] LABS: C-Reactive Protein 1.6 mg/dL (0.00-1.30)
--- NOTE | 2019-09-29 12:05 | Progress Note ---
Assessment and Plan COVID-19 infection Morbid Obesity Continue all supportive care as documented below CXR in am Monitor another 24 hours, O2 sats were down to 90% on exercise today -O2 sat 95% on room air, down to 90% after exercise. -VTE prophylaxis. early ambulation -Monitor off antibiotics. Trend temperature curve, and WCC -Conservative fluid management, intermittent diuretics if indicated -Continue with continuous O2 and telemetry monitoring -Continue supportive care -Supplemental vitamins for COVID infection -Weight loss counselling, life style modifications Discussed with ID and Dr. Garza Discharge planning Subjective Date of service: 09/29/19 Principal diagnosis: COVID Interval history: Follow up for COVID infection; Bilateral infiltrates on CXR Seen and examined. Vitals, labs, medications,, chart and imaging reviewed. No adverse overnight events. Denies any chest pain, no shortness of breath, no fevers or chills. No diarrhea or vomiting. Not requiring supplemental oxygen therapy Inflammatory markers: ferritin 418-->360, LDH 250-->250, CRP 5.1-->3.9, Ddimer 280-->202. Objective - Exam Narrative Exam: Constitutional: no acute distress, alert Eyes: non-icteric ENT: oropharynx moist Neck: supple, no lymphadenopathy, no JVD Effort: normal Ascultation: Bilateral: clear, diminished breath sounds Cardiovascular: regular rate and rhythm, other (S1,S2, no murmurs) Gastrointestinal: normoactive bowel sounds, soft, non-tender, non-distended Integumentary: normal Extremities: no cyanosis, no edema, pink and warm, pulses normal Neurologic: normal mental status, non-focal exam, pupils equal and round, motor strength normal and Psychiatric: mood appropriate, affect normal Vital Signs - 12hr 09/29/19 09/29/19 09/29/19 05:44 08:31 08:35 Temperature 98.0 F Pulse Rate 55 L 63 Respiratory 18 16 Rate Blood Pressure 151/70 O2 Sat by Pulse 97 97 Oximetry CBC and BMP: 09/29/19 04:34 09/29/19 04:34 ABG, PT/INR, D-dimer: PT/INR, D-dimer PT 13.1 Sec. (12.2-14.9) 09/28/19 05:07 INR 0.98 (0.87-1.13) 09/28/19 05:07 D-Dimer 202.77 ng/mlDDU (0-234) 09/27/19 Unknown Abnormal lab findings: Abnormal Labs 09/27/19 09/27/19 09/27/19 00:22 00:22 00:22 Lymph % (Auto) [place] % (Auto) 10.1 H Eos % (Auto) D-Dimer 280.32 H Potassium Creatinine 0.5 L Glucose 131 H Ferritin ALT 68 H Lactate Dehydrogenase C-Reactive Protein Total Protein 8.6 H Coronavirus (PCR) 09/27/19 09/27/19 09/27/19 00:22 00:22 07:37 Lymph % (Auto) [place] % (Auto) Eos % (Auto) D-Dimer Potassium Creatinine Glucose 133 H Ferritin 418.6 H ALT Lactate Dehydrogenase 250 H C-Reactive Protein 5.10 H Total Protein Coronavirus (PCR) Positive A 09/27/19 09/28/19 09/28/19 Unknown 05:07 05:07 Lymph % (Auto) [place] % (Auto) 10.9 H Eos % (Auto) D-Dimer Potassium Creatinine 0.4 L Glucose 147 H 106 H Ferritin ALT Lactate Dehydrogenase 252 H C-Reactive Protein 3.90 H Total Protein Coronavirus (PCR) 09/29/19 09/29/19 09/29/19 04:34 04:34 04:34 Lymph % (Auto) 38.9 H [place] % (Auto) 13.3 H Eos % (Auto) 4.5 H D-Dimer Potassium 3.4 L Creatinine 0.4 L Glucose Ferritin ALT Lactate Dehydrogenase 226 H C-Reactive Protein 1.60 H Total Protein Coronavirus (PCR)
--- NOTE | 2019-09-29 15:37 | Progress Note ---
Assessment and Plan Assessment and plan: Bilateral pneumonia. Continue IV antibiotics and follow-up serial chest x-ray. Pulmonary consulted. COVID-19 infection. Follow-up COVID testing. Trend inflammatory markers. ID consulted Sepsis. Etiology secondary to above. Follow-up blood cultures and continue sepsis protocol. Acute hypoxic respiratory failure. Etiology secondary to above. Continue O2 to maintain sats greater than 92%. BiPAP as clinically indicated. Consult pulmonary for further evaluation. Obesity. Patient with high risk for decompensation and clotting complications. 09/28/2019. COVID 19+ PCR 09/27/2019. Continue to follow inflammatory markers of LDH, CRP, ferritin and d-dimer. Continue ceftriaxone and azithromycin per ID recommendations. Pulmonary also following. 09/29/2019 Patient with Covid-19 infection, acute resp failure, on supplemental Oxygen. Discussed with Pulmonology. Poss discharge tomorrow. History Interval history: shortness of breath Hospitalist Physical - Physical exam Narrative exam: GEN: Not in acute distress, obese, lying in bed HEENT: Normocephalic, atraumatic, Neck: supple, No JVD Lungs: Bilateral crackles, heart;S1 and S2 reg, no murmurs, rubs or gallop Abd:soft, non tender, non distended, normal bowel sounds, Ext: No edema, no clubbing, no cyanosis, Neuro: Awake,alert,oriented X3 , no focal signs, - Constitutional Vitals: Temp Pulse Resp BP Pulse Ox 99.5 F 74 18 139/72 93 09/29/19 13:46 09/29/19 13:31 09/29/19 13:31 09/29/19 13:31 09/29/19 13:31 General appearance: Present: no acute distress, obese Results - Labs CBC & Chem 7: 09/29/19 04:34 09/29/19 04:34 Labs: Laboratory Last Values WBC 6.2 K/mm3 (4.5-11.0) 09/29/19 04:34 RBC 4.67 M/mm3 (3.65-5.03) 09/29/19 04:34 Hgb 13.3 gm/dl (10.1-14.3) 09/29/19 04:34 Hct 39.1 % (30.3-42.9) 09/29/19 04:34 MCV 84 fl (79-97) 09/29/19 04:34 MCH 28 pg (28-32) 09/29/19 04:34 MCHC 34 % (30-34) 09/29/19 04:34 RDW 13.5 % (13.2-15.2) 09/29/19 04:34 Plt Count 309 K/mm3 (140-440) 09/29/19 04:34 Lymph % (Auto) 38.9 % (13.4-35.0) H 09/29/19 04:34 [place] % (Auto) 13.3 % (0.0-7.3) H 09/29/19 04:34 Eos % (Auto) 4.5 % (0.0-4.3) H 09/29/19 04:34 Baso % (Auto) 0.3 % (0.0-1.8) 09/29/19 04:34 Lymph # 2.4 K/mm3 (1.2-5.4) 09/29/19 04:34 [place] # 0.8 K/mm3 (0.0-0.8) 09/29/19 04:34 Eos # 0.3 K/mm3 (0.0-0.4) 09/29/19 04:34 Baso # 0.0 K/mm3 (0.0-0.1) 09/29/19 04:34 Seg Neutrophils % 43.0 % (40.0-70.0) 09/29/19 04:34 Seg Neutrophils # 2.7 K/mm3 (1.8-7.7) 09/29/19 04:34 PT 13.1 Sec. (12.2-14.9) 09/28/19 05:07 INR 0.98 (0.87-1.13) 09/28/19 05:07 APTT 28.7 Sec. (24.2-36.6) 09/28/19 05:07 D-Dimer 231.39 ng/mlDDU (0-234) 09/29/19 12:46 Sodium 140 mmol/L (137-145) 09/29/19 04:34 Potassium 3.4 mmol/L (3.6-5.0) L 09/29/19 04:34 Chloride 100.6 mmol/L (98-107) 09/29/19 04:34 Carbon Dioxide 24 mmol/L (22-30) 09/29/19 04:34 Anion Gap 19 mmol/L 09/29/19 04:34 BUN 10 mg/dL (7-17) 09/29/19 04:34 Creatinine 0.4 mg/dL (0.7-1.2) L 09/29/19 04:34 Estimated GFR > 60 ml/min 09/29/19 04:34 BUN/Creatinine Ratio 25 % 09/29/19 04:34 Glucose 98 mg/dL (65-100) 09/29/19 04:34 Calcium 9.0 mg/dL (8.4-10.2) 09/29/19 04:34 Ferritin 334.4 ng/mL (13.0-400.0) 09/29/19 04:34 Total Bilirubin 0.40 mg/dL (0.1-1.2) 09/27/19 00:22 AST 40 units/L (5-40) 09/27/19 00:22 ALT 68 units/L (7-56) H 09/27/19 00:22 Alkaline Phosphatase 84 units/L (35-129) 09/27/19 00:22 Lactate Dehydrogenase 226 units/L (91-180) H 09/29/19 04:34 C-Reactive Protein 1.60 mg/dL (0.00-1.30) H 09/29/19 04:34 Total Protein 8.6 g/dL (6.3-8.2) H 09/27/19 00:22 Albumin 4.4 g/dL (3.9-5) 09/27/19 00:22 Albumin/Globulin Ratio 1.0 % 09/27/19 00:22 Procalcitonin < 0.05 ng/mL (<0.15) 09/28/19 05:07 Urine Color Yellow (Yellow) 09/26/19 22:30 Urine Turbidity Clear (Clear) 09/26/19 22:30 Urine pH 6.0 (5.0-7.0) 09/26/19 22:30 Ur Specific [place] 1.020 (1.003-1.030) 09/26/19 22:30 Urine Protein 30 mg/dl mg/dL (Negative) 09/26/19 22:30 Urine Glucose (UA) Neg mg/dL (Negative) 05/16/20 22:30 Urine Ketones Neg mg/dL (Negative) 09/26/19 22:30 Urine Blood Neg (Negative) 09/26/19 22:30 Urine Nitrite Neg (Negative) 09/26/19 22:30 Urine Bilirubin Neg (Negative) 09/26/19 22:30 Urine Urobilinogen 2.0 mg/dL (<2.0) 09/26/19 22:30 Ur Leukocyte Esterase Neg (Negative) 09/26/19 22:30 Urine WBC (Auto) 2.0 /HPF (0.0-6.0) 09/26/19 22:30 Urine RBC (Auto) 2.0 /HPF (0.0-6.0) 09/26/19 22:30 U Epithel Cells (Auto) 7.0 /HPF (0-13.0) 09/26/19 22:30 Urine Mucus Few /HPF 09/26/19 22:30 Urine HCG, Qual Negative (Negative) 09/26/19 22:30 Coronavirus (PCR) Positive (Negative) A 09/27/19 07:37 Rivera/IV: Voiding Method Toilet IV Catheter Type [Right Peripheral IV Antecubital] Active Medications - Current Medications Current Medications: Generic Name Dose Route Start Last Admin Trade Name Freq PRN Reason Stop Dose Admin Acetaminophen 650 mg 09/27/19 02:29 09/27/19 14:45 Tylenol PO 650 mg Q4H PRN Administration Pain MILD(1-3)/Fever >100.5/HERNANDEZ Ascorbic Acid 500 mg 09/28/19 12:00 09/29/19 10:01 Vitamin C PO 500 mg BID AGNIESZKA Administration Cholecalciferol 5,000 unit 09/28/19 13:00 09/29/19 10:00 Vitamin D3 PO 5,000 unit QDAY AGNIESZKA Administration Heparin Sodium (Porcine) 5,000 unit 09/27/19 14:00 09/29/19 13:21 Heparin SUB-Q 5,000 unit Q8HR AGNIESZKA Administration Magnesium Hydroxide 30 ml 09/27/19 02:29 Milk Of Magnesia PO Q4H PRN Constipation Ondansetron HCl 4 mg 09/27/19 02:29 Zofran IV Q8H PRN Nausea And Vomiting Sodium Chloride 10 ml 09/27/19 10:00 09/29/19 09:46 Sodium Chloride Flush Syringe 10 Ml IV 10 ml BID AGNIESZKA Administration Sodium Chloride 10 ml 09/27/19 02:29 Sodium Chloride Flush Syringe 10 Ml IV PRN PRN LINE FLUSH
[2019-09-30] MEDS: HEPARIN 5,000 UNIT/1 ML VIAL SUB-Q SCH (05:09)
[2019-09-30 09:46] VITALS: BP 129/64
[2019-09-30] MEDS: CHOLECALCIFEROL (VIT D3) 5,000 UNIT TAB PO SCH (09:47)
[2019-09-30] MEDS: ASCORBIC ACID 500 MG TAB PO SCH (09:47)
--- NOTE | 2019-09-30 10:34 | Discharge Summary ---
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 She also indicates that she has had some fever, sore throat and headache. Headache has since resolved. Patient indicates that she has seasonal allergies he has had some dysuria but denies any hematuria. Denies any nausea vomiting denies any diarrhea. She was seen and evaluated in E mergency Department and chest x-ray were concerning for bilateral pneumonia. She was started on Certriaxone and Azithromycin and admitted. She was therefore placed on airborne/droplet precautions for possible COVID-19. She was admitted, and ID Physician consulted. Covid-19 test came back positive. She was on supplemental Oxygen. She improved , weaned off Oxygen and was discharged home on 09/30/19 COVID-19 infection. ID was managing supportive care, Oxygen, Antibiotics,isolation Bilateral pneumonia due to Covid-19 infection Treated with Ceftriaxone and Azithromycin Sepsis. Etiology secondary to above. Acute hypoxic respiratory failure. was on supplemental Oxygen, now weaned off Obesity. Patient with high risk for decompensation and clotting complications. 09/28/2019. COVID 19+ PCR 09/27/2019. Continue to follow inflammatory markers of LDH, CRP, ferritin and d-dimer. Continue ceftriaxone and azithromycin per ID recommendations. Pulmonary also following. 09/29/2019 Patient with Covid-19 infection, acute resp failure, on supplemental Oxygen. Discussed with Pulmonology. Poss discharge tomorrow. Total time spent on discharge, 33 mins Disposition: DC- TO HOME OR SELFCARE Core Measure Documentation - Palliative Care Palliative Care/ Comfort Measures: Not Applicable - Core Measures Any of the following diagnoses?: none Exam - Constitutional Vitals: Temp Pulse Resp BP Pulse Ox 98.5 F 62 18 129/64 100 09/30/19 05:20 09/29/19 17:23 09/30/19 05:20 09/30/19 05:20 09/29/19 21:40 Plan Diet: low fat, low cholesterol, low salt Additional Instructions: 1.Follow up with PCP in 1 week. 2.Follow up with Dr. Michael, ID Physician in 1 week. 3.Continue isolation at home, with mask for total 14 days and until no symptmos for 3 days. Start counting from 09/26/19 Follow up with: PRIMARY CARE, [Primary Care Provider] - 3-5 Days Prescriptions: Ascorbic Acid [Vitamin C] 500 mg PO BID #60 tablet Cholecalciferol (Vitamin D3) [Vitamin D3] 5,000 unit PO QDAY #30 tablet
--- NOTE | 2019-09-30 14:17 | Progress Note ---
Assessment and Plan Cultures: None A/P: 34-year-old female no past medical history admitted with: #COVID-19 pneumonia: No evidence of ongoing cytokine storm- ferritin 418-->360, LDH 250-->250, CRP 5.1-->3.9, Ddimer 280-->202. CXR with patchy airspace disease arabella. Procal <0.05 (no evidence of bacterial pneumonia) O2 sat 95% on room air, down to 92% after exercise on 09/28, today no hypoxemia with exercise and markers normal. #Obesity: High risk for decompensation, clotting complications. Recs: -Continue supportive care -Ok to d/c home -vit C and vit D Will follow. Zoila Luo MD Infectious Diseases [employer] [facility] ([facility]) M [phone] O [phone] Subjective Date of service: 09/30/19 Principal diagnosis: COVID Interval history: Feels much better, no fever Objective - Exam Narrative Exam: General appearance: Alert in NAD on room air Eyes: anicteric sclerae, PERRLA HENT: Atraumatic; oropharynx clear Lungs: limited CV: RRR Abdomen: Soft, non-tender Extremities: no edema, no cyanosis Skin: No rash. Psych: no agitated Neuro: alert and oriented x 3. Moving all extermities - Constitutional Vitals: Vital Signs Temp Pulse Resp BP Pulse Ox 98.5 F 62 18 129/64 100 09/30/19 05:20 09/29/19 17:23 09/30/19 05:20 09/30/19 05:20 09/29/19 21:40 Temperature -Last 24 Hours Temperature 98.5 F Temperature 98.9 F Temperature 99.3 F - Labs CBC & Chem 7: 09/29/19 04:34 09/29/19 04:34
--- NOTE | 2019-10-23 20:30 | Consultation ---
CONSULTING PHYSICIAN: Dr. Erwin Almendarez REASON FOR CONSULTATION: Pneumonia, shortness of breath. CHIEF COMPLAINT AND HISTORY OF PRESENT ILLNESS: The patient is a now 34-year-old female with past medical history significant for there being none, who presented to the Emergency Room complaining of mid to lower back pain, had been going on for a couple of days. She described a fever, sore throat, headaches. Denied any gross or streaky hemoptysis. She does have a history of seasonal allergies apparently but denied any symptoms like this in the past. She denied any nausea or vomiting. Denies diarrhea. She denied recent travel. She denied any sick contacts, in particular, she denies any history of contact with anyone with known COVID-19. Workup in the Emergency Room included a chest x-ray, which revealed bilateral pneumonia and we are asked to assist with management. When I stopped by to see her, she was resting in bed, feeling a little bit better. When asked about tobacco use or abuse history, she denied any such history. Denied any new leg pain or swelling either unilaterally or bilaterally or any suggestion of deep venous thrombosis. This really is as much of the history of presentation as I have. PAST MEDICAL HISTORY: Obesity. PAST SURGICAL HISTORY: Denies. MEDICATIONS: She was on at the time I stopped by to see her were reviewed. Pertinent medications included the following: Tylenol 650 mg p.o. q. 4 hours p.r.n. mild pain or fevers, Zithromax 500 mg p.o. daily, heparin 5000 units subcutaneous q. 8 hours, Rocephin 2 g IV daily, p.r.n. milk of magnesia, Zofran 4 mg IV q. 8 hours p.r.n. nausea and vomiting. ALLERGIES: No known drug allergies. DIET: Obese lady. Denies acute weight loss or gain in the preceding few weeks to months. FAMILY AND SOCIAL HISTORY: Lives in the community. Denies alcohol, tobacco, or illicit drug use or abuse. FAMILY HISTORY: Otherwise, noncontributory. REVIEW OF SYSTEMS: No loss of consciousness. No new onset seizures. No new onset focal weakness. Denies gross hematochezia or melena. Denies gross hematuria. She had some dysuria. Denies any hematemesis. Denies hemoptysis. Denies polydipsia or polyuria. Denies heat or cold intolerance. Complete 13-system review of systems obtained. Pertinent positives and/or negatives as in body of history above, otherwise noncontributory. PHYSICAL EXAMINATION: VITAL SIGNS: On examination at presentation, she was febrile, temperature 99.9 degrees Fahrenheit; pulse of 102; respiratory rate of 18; blood pressure 156/75; O2 sats were 95%, inspired oxygen concentration at that time was not recorded. When I stopped by to see her, O2 sats were 100% on 2 liters nasal cannula. GENERAL: She is a young female, obese, normocephalic, atraumatic, talking in slightly interrupted sentences with mildly increased respiratory effort at rest. HEAD, EYES, EARS, NOSE AND THROAT: She was anicteric, no conjunctival erythema. Oropharynx was moist. She has a large neck circumference. No gross jugular venous distention, no thyromegaly. NECK: Grossly, there were no palpable lymph nodes in the supraclavicular or submandibular lymph node chains and neck was supple with normal range of motion. LUNGS: Auscultation of both lung ferrera revealed diminished/distant bilateral breath sounds, occasional inspiratory crackles in the bases. No wheezing. HEART: Heart sounds 1 and 2 are heard. They were regular in rate and rhythm at time of my evaluation, without rubs or murmurs. ABDOMEN: Soft, full, bowel sounds are positive, nontender, no palpable hepatosplenomegaly. EXTREMITIES: Without overt digital clubbing or cyanosis. She has no pedal edema. Pedal pulses were 2+ bilaterally. Full range of motion. NEUROLOGIC: Pupils are equal, round, about 4 mm, reactive to light. Extraocular muscle movements were intact. Cranial nerves 2-12 are intact. SKIN: Normal turgor without overt cellulitis or rash. LABORATORY DATA: From my review is as follows: Admission white cell count 6100, hemoglobin 13.7, hematocrit 40.1, platelet count was 243. No manual differential. D-dimer was elevated slightly at 280. Serum sodium was 138, potassium 3.7, chloride 99, bicarbonate 24, BUN 10, creatinine 0.5, glucose 133. ALT was slightly up at 68, otherwise liver function tests were essentially within normal limits. CRP level was slightly elevated at 5.1. Procalcitonin within normal limits. Urinalysis was negative for nitrites and leukocyte esterase. Urine hCG was negative. Coronavirus PCR was positive. No microbiology studies. Chest x-ray was done. I have reviewed the chest x-ray. I have also reviewed the radiologist's interpretation. Essentially, it shows patchy airspace infiltrate/opacities bilaterally. No pneumothorax, no gross bony fracture. ASSESSMENT: 1. Acute hypoxemic respiratory failure, improving. 2. Bilateral pneumonia. 3. COVID-19 infection. 4. Morbid obesity. 5. Elevated D-dimer. 6. Hyperglycemia. 7. Elevated serum inflammatory markers including ferritin, CRP and D-dimer. PLAN: She will be weaned off supplemental oxygen, targeting O2 sats greater than or equal to above 90%. Aspiration precautions will be maintained. We will continue empiric community-acquired pneumonia testing. Airborne and contact precautions will be maintained. COVID-19 testing will be repeated. Other supportive care will be given. Insulin will be monitored with sliding scale for target blood glucose less than 118 mg/dL. She is appropriately on GI prophylaxis, will be put on DVT prophylaxis. Weight loss has been counseled. Supplemental vitamins will be included including zinc and vitamin C for the COVID-19 infection. Flu and pneumonia vaccination will be addressed per protocol. Thank you very much for the consult. We will follow along and make further recommendations as picture progresses/becomes clearer. JOB# [id number] ELIZA/OBIE
== END 2019-09-30 12:45 | disposition home or self-care (01) | DRG 871 ==
LOC: ED 22:02 → IMCU 09-27 03:06
PROVIDERS: ADMIT Internal Medicine Geriatric Medicine; ATTEND Internal Medicine
DX: A41.89 Other specified sepsis (principal); U07.1 COVID-19; J12.89 Other viral pneumonia; J96.01 Acute respiratory failure with hypoxia; Z68.37 Body mass index [BMI] 37.0-37.9, adult; E66.01 Morbid (severe) obesity due to excess calories
CPT/HCPCS: 36415; 71046; 80048; 80053; 81001; 81025; 82728; 82947; 83615; 84145; 85025; 85379; 85610; 85730; 86140; G0378; J0456; J0696; J1644; J7030; J7050; U0003